=== PATIENT | male | born 1975 | race African-American/Black ===

== ENCOUNTER 2019-12-17 04:34 | Inpatient (IN) ==
[2019-12-17] MEDS ORDERED: ALBUTEROL/IPRATROPIUM 3 ML NEB RESP TX STA (04:53)
[2019-12-17] MEDS ORDERED: AZITHROMYCIN INJ 500 MG in SODIUM CHLORIDE 0.9% 250 ML IV STA (04:53)
[2019-12-17] MEDS ORDERED: ONDANSETRON 4 MG/2 ML VIAL IV STA (04:53)
[2019-12-17] MEDS ORDERED: methylPREDNISolone SOD SUC 125 MG/2 ML VIAL IV STA (04:53)
[2019-12-17] MEDS ORDERED: MORPHINE 4 MG/1 ML VIAL IV STA (04:53)
[2019-12-17] MEDS ORDERED: NITROGLYCERIN 2% OINT 1 INCH/GM PACK TOP STA (04:53)
[2019-12-17] MEDS ORDERED: FUROSEMIDE 100 MG/10 ML VIAL IV STA (04:53)
[2019-12-17] MEDS ORDERED: PIPERACILLIN/TAZOBACTAM 3,375 MG in SODIUM CHLORIDE 0.9% 100 ML IV STA (05:18)
[2019-12-17 05:56] LABS: Basophils % 0.3 % (0.0-0.8); Eosinophils # 0.2 10*3/uL (0.0-0.87); Eosinophils % 1.3 % (0.00-10.9); Hematocrit 47.1 VOL% (42.0-52.0); Hemoglobin 14.9 GM/DL (14.0-18.0); Immature Granulocytes % 0.5 %; Immature Granulocytes Absolute 0.06 #; Lymphocytes # 0.7 10*3/uL (1.4-4.0); Lymphocytes % 6.5 % (21.2-54.2); Mean Corpuscular HGB Conc 31.6 GM/DL (32-36); Mean Corpuscular Volume 103.5 FL (87-102); Mean Platelet Volume 12.6 FL (9.6-12.0); Monocytes % 6.7 % (1.7-12.7); Neutrophils % 84.7 % (38.7-73.9); Platelet Count 147 T/CUMM (130-400); Red Blood Count 4.55 MC/CUMM (3.8-5.5); Red Cell Distribution Width 12.9 % (9.3-17.3); White Blood Count 11.2 T/CUMM (4-12)
[2019-12-17] MEDS ORDERED: hydrALAZINE 20 MG/1 ML VIAL IV STA (06:09)
[2019-12-17 06:12] LABS: PT Patient Result 10.7 SECS (9.6-12.2)
[2019-12-17 06:15] LABS: Apearance,Urine Slightly Hazy (Clear); Bilirubin,Urine Negative (Negative); Blood, Urine Negative (Negative); Glucose,Urine (UA) 150 mg/dL (Negative); Hyaline Casts,Urine 3 /LPF (0-3); Ketones,Urine 5 mg/dL (Negative); Mucus,Urine Occasional /LPF (Occasional); Nitrite,Urine Negative (Negative); Protein,Urine >=500 MG/DL; RBC,Urine 7 /HPF (0-4); Squamous Epithelial Cell,Urine Occasional /HPF (0-10); Urine Color Amber (Yellow); Urine Specific Gravity 1.029 (1.001-1.035); WBC,Urine 67 /HPF (0-6)
[2019-12-17 06:16] LABS: Barbiturates Screen,Urine Negative (Negative); Benzodiazepines Screen,Urine Negative (Negative); Cannabinoid Screen,Urine Positive (Negative); Opiate Screen,Urine Positive (Negative); Phencyclidine Screen,Urine Negative (Negative)
[2019-12-17 06:37] LABS: Albumin 3.7 G/DL (3.4-5.0); Bilirubin,Total 1.6 MG/DL (0.2-1.0); Calcium 8.7 MG/DL (8.5-10.1); Osmolality,Calculated 275.5 MOS/KG (273-304); Total Protein 7.6 G/DL (6.4-8.3)
[2019-12-17] MEDS ORDERED: PNEUMOCOCCAL VACCINE (23 VALENT) 0.5 ML VIAL IM ONE (09:16)
[2019-12-17] MEDS ORDERED: INFLUENZA VIRUS VACCINE 0.5 ML SYRINGE IM ONE (09:16)
[2019-12-17] MEDS ORDERED: ONDANSETRON 4 MG/2 ML VIAL IV PRN (10:23)
[2019-12-17] MEDS ORDERED: DEXTROSE 50% 25 GM/50 ML VIAL IV PRN (10:23)
[2019-12-17] MEDS ORDERED: GLUCAGON 1 MG VIAL IM PRN (10:23)
[2019-12-17] MEDS: cefTRIAXone 1,000 MG in SYRINGE 1 EACH IV SCH (11:48)
[2019-12-17] MEDS: ENOXAPARIN 40 MG/0.4 ML SYRINGE SUBCUT SCH (11:52)
[2019-12-17] MEDS ORDERED: ALBUTEROL/IPRATROPIUM 3 ML NEB RESP TX SCH (13:00)
[2019-12-17] MEDS: ACETAMINOPHEN 325 MG TABLET PO PRN (17:17)
[2019-12-17] MEDS: LEVALBUTEROL 0.63 MG/3 ML NEB RESP TX SCH (19:26)
[2019-12-17] MEDS ORDERED: LABETALOL 20 MG/4 ML SYRINGE IV PRN (20:28)
[2019-12-17] MEDS: LABETALOL 20 MG/4 ML SYRINGE IV PRN (21:12)
[2019-12-18] MEDS: LEVALBUTEROL 0.63 MG/3 ML NEB RESP TX SCH ×4 (00:11→20:22)
[2019-12-18 03:20] LABS: Basophils % 0.1 % (0.0-0.8); Eosinophils % 0.1 % (0.00-10.9); Hematocrit 41.1 VOL% (42.0-52.0); Hemoglobin 13.1 GM/DL (14.0-18.0); Immature Granulocytes % 0.5 %; Immature Granulocytes Absolute 0.08 #; Lymphocytes # 0.7 10*3/uL (1.4-4.0); Lymphocytes % 4.7 % (21.2-54.2); Mean Corpuscular HGB Conc 31.9 GM/DL (32-36); Mean Corpuscular Volume 102.8 FL (87-102); Mean Platelet Volume 13.2 FL (9.6-12.0); Monocytes % 6.5 % (1.7-12.7); Neutrophils % 88.1 % (38.7-73.9); Platelet Count 152 T/CUMM (130-400); Red Cell Distribution Width 12.9 % (9.3-17.3); White Blood Count 15.4 T/CUMM (4-12)
[2019-12-18 03:49] LABS: Calcium 8.7 MG/DL (8.5-10.1); Osmolality,Calculated 279.7 MOS/KG (273-304); Thyroid Stimulating Hormone 0.293 uIU/ml (0.358-3.74)
[2019-12-18 04:49] LABS: Hypochromasia 1+; Lymphocytes 4 % (20-55); Ovalocytes Slight; Platelet Estimate Adequate; Segmented Neutrophils 91 % (50-85); Total Cells Counted 100
[2019-12-18] MEDS: MULTIVITAMIN (CENTRUM) TABLET PO SCH (08:58)
[2019-12-18] MEDS: CHOLECALCIFEROL 1,000 UNIT TABLET PO SCH (08:58)
[2019-12-18] MEDS: CYANOCOBALAMIN 500 MCG TABLET PO SCH (08:58)
[2019-12-18] MEDS: AZITHROMYCIN INJ 500 MG in SODIUM CHLORIDE 0.9% 250 ML IV SCH (08:59)
[2019-12-18] MEDS ORDERED: METOPROLOL TARTRATE 25 MG TABLET PO SCH (11:00)
[2019-12-18] MEDS: cefTRIAXone 1,000 MG in SYRINGE 1 EACH IV SCH (11:45)
[2019-12-18] MEDS: ENOXAPARIN 40 MG/0.4 ML SYRINGE SUBCUT SCH (11:45)
[2019-12-18] MEDS ORDERED: LEVALBUTEROL 0.63 MG/3 ML NEB RESP TX ONE (17:03)
[2019-12-18] MEDS ORDERED: ALBUTEROL/IPRATROPIUM 3 ML NEB RESP TX PRN (17:04)
[2019-12-18] MEDS: LABETALOL 20 MG/4 ML SYRINGE IV PRN (19:43)
[2019-12-19] MEDS: LEVALBUTEROL 0.63 MG/3 ML NEB RESP TX SCH ×4 (00:49→19:54)
[2019-12-19] MEDS: LABETALOL 20 MG/4 ML SYRINGE IV PRN (01:17)
[2019-12-19] MEDS ORDERED: ETOMIDATE 20 MG/10 ML VIAL IV ONE (02:15)
[2019-12-19] MEDS ORDERED: VECURONIUM 10 MG VIAL IV ONE (02:15)
[2019-12-19] MEDS ORDERED: FUROSEMIDE 40 MG/4 ML VIAL ONE (02:44)
[2019-12-19] MEDS ORDERED: FUROSEMIDE 40 MG/4 ML VIAL IV ONE (02:46)
[2019-12-19] MEDS ORDERED: NITROGLYCERIN DRIP 50 MG/250 ML BOTTLE IV ONE (02:50)
[2019-12-19 02:53] LABS: ABG Base Excess -12.8 MMOL/L (-2.5-2.5); ABG Oxygen Saturation 53.7 % (95-100); ABG PO2 45.7 MM HG (80-95); ABG TCO2 19.6 MMOL/L (23-27)
[2019-12-19] MEDS ORDERED: NITROGLYCERIN DRIP 50 MG/250 ML BOTTLE IV PRN (02:55)
[2019-12-19 02:56] LABS: ABG PCO2 76.1 MM HG (35-48); ABG PH 7.045 (7.35-7.45)
[2019-12-19 03:15] LABS: Basophils # 0.1 10*3/uL (0.0-0.2); Basophils % 0.3 % (0.0-0.8); Eosinophils # 0.4 10*3/uL (0.0-0.87); Eosinophils % 2.5 % (0.00-10.9); Immature Granulocytes % 0.6 %; Immature Granulocytes Absolute 0.09 #; Lymphocytes # 3.5 10*3/uL (1.4-4.0); Lymphocytes % 23.8 % (21.2-54.2); Mean Corpuscular Volume 108.7 FL (87-102); Monocytes % 6.5 % (1.7-12.7); Neutrophils % 66.3 % (38.7-73.9); Platelet Count 238 T/CUMM (130-400); Red Cell Distribution Width 13.1 % (9.3-17.3); White Blood Count 14.8 T/CUMM (4-12)
[2019-12-19 03:42] LABS: Calcium 9.2 MG/DL (8.5-10.1); Osmolality,Calculated 291.7 MOS/KG (273-304)
[2019-12-19] MEDS: fentaNYL INJ 1,250 MCG in SODIUM CHLORIDE 0.9% 225 ML IV PRN (04:20)
[2019-12-19] MEDS ORDERED: PHENYLEPHRINE DRIP 40 MG/250 ML PREMIX IV ONE (04:54)
[2019-12-19] MEDS ORDERED: LIDOCAINE 1%/EPI INJ 20 ML VIAL ONE (05:15)
[2019-12-19] MEDS ORDERED: HEPARIN/NACL 0.9% 2 UNITS/ML 1,000 ML IV ONE (05:15)
[2019-12-19] MEDS ORDERED: TIROFIBAN 5,000 MCG/100 ML PREMIX IV ONE (05:57)
[2019-12-19] MEDS ORDERED: ENOXAPARIN 60 MG/0.6 ML SYRINGE ONE (05:57)
[2019-12-19] MEDS ORDERED: TIROFIBAN 5,000 MCG/100 ML PREMIX IV SCH (06:09)
[2019-12-19] MEDS ORDERED: PHENYLEPHRINE DRIP 40 MG/250 ML PREMIX IV PRN ×2 (06:23→15:30)
[2019-12-19] MEDS ORDERED: TICAGRELOR 90 MG TABLET ONE (06:23)
[2019-12-19 08:05] LABS: Basophils % 0.2 % (0.0-0.8); Eosinophils # 0.2 10*3/uL (0.0-0.87); Eosinophils % 1.3 % (0.00-10.9); Hematocrit 42.1 VOL% (42.0-52.0); Hemoglobin 13.3 GM/DL (14.0-18.0); Immature Granulocytes % 0.3 %; Immature Granulocytes Absolute 0.04 #; Lymphocytes # 1.3 10*3/uL (1.4-4.0); Lymphocytes % 10.9 % (21.2-54.2); Mean Corpuscular HGB Conc 31.6 GM/DL (32-36); Mean Corpuscular Volume 104.7 FL (87-102); Monocytes % 7.7 % (1.7-12.7); Neutrophils % 79.6 % (38.7-73.9); Platelet Count 201 T/CUMM (130-400); Red Blood Count 4.02 MC/CUMM (3.8-5.5); Red Cell Distribution Width 13.2 % (9.3-17.3); White Blood Count 11.7 T/CUMM (4-12)
[2019-12-19 08:41] LABS: ABG Base Excess -4.7 MMOL/L (-2.5-2.5); ABG HCO3 20.6 MMOL/L (20-26); ABG Oxygen Saturation 99.2 % (95-100); ABG PCO2 37.4 MM HG (35-48); ABG PH 7.347 (7.35-7.45); ABG TCO2 17.9 MMOL/L (23-27)
[2019-12-19] MEDS ORDERED: METOPROLOL TARTRATE 25 MG TABLET PO SCH (09:00)
[2019-12-19] MEDS ORDERED: TICAGRELOR 90 MG TABLET PO SCH (09:00)
[2019-12-19 09:07] LABS: Calcium 8.7 MG/DL (8.5-10.1); Osmolality,Calculated 282.5 MOS/KG (273-304)
[2019-12-19] MEDS: AZITHROMYCIN INJ 500 MG in SODIUM CHLORIDE 0.9% 250 ML IV SCH (09:29)
[2019-12-19] MEDS: ASPIRIN EC 81 MG TABLET PO SCH (09:30)
[2019-12-19] MEDS: CHOLECALCIFEROL 1,000 UNIT TABLET PO SCH (09:30)
[2019-12-19] MEDS: CYANOCOBALAMIN 500 MCG TABLET PO SCH (09:30)
[2019-12-19] MEDS: PANTOPRAZOLE 40 MG TABLET PO SCH (09:30)
[2019-12-19] MEDS: MULTIVITAMIN (CENTRUM) TABLET PO SCH (09:30)
[2019-12-19 11:34] LABS: CKMB % 7.7 %
[2019-12-19 11:37] LABS: Troponin I 12.8 NG/ML (0.00-0.045)
[2019-12-19] MEDS: cefTRIAXone 1,000 MG in SYRINGE 1 EACH IV SCH (12:08)
[2019-12-19 13:51] LABS: CKMB % 8.8 %
[2019-12-19 13:59] LABS: Troponin I 14.4 NG/ML (0.00-0.045)
[2019-12-19 18:23] LABS: CKMB % 8.5 %
[2019-12-19 18:30] LABS: Troponin I 10.3 NG/ML (0.00-0.045)
[2019-12-19] MEDS: ATORVASTATIN 40 MG TABLET PO SCH (20:43)
[2019-12-19] MEDS: TICAGRELOR 90 MG TABLET PO SCH (20:44)
[2019-12-19] MEDS: ENOXAPARIN 30 MG/0.3 ML SYRINGE SUBCUT SCH (20:44)
[2019-12-20] MEDS: LEVALBUTEROL 0.63 MG/3 ML NEB RESP TX SCH ×4 (00:21→20:26)
[2019-12-20 03:55] LABS: ABG Base Excess -3.2 MMOL/L (-2.5-2.5); ABG HCO3 21.8 MMOL/L (20-26); ABG Oxygen Saturation 99.6 % (95-100); ABG PCO2 35.9 MM HG (35-48); ABG PH 7.382 (7.35-7.45)
[2019-12-20 04:03] LABS: Basophils % 0.4 % (0.0-0.8); Eosinophils # 0.3 10*3/uL (0.0-0.87); Eosinophils % 4.7 % (0.00-10.9); Hematocrit 37.5 VOL% (42.0-52.0); Hemoglobin 11.5 GM/DL (14.0-18.0); Immature Granulocytes % 0.4 %; Immature Granulocytes Absolute 0.03 #; Lymphocytes % 13.6 % (21.2-54.2); Mean Corpuscular HGB Conc 30.7 GM/DL (32-36); Mean Corpuscular Volume 108.1 FL (87-102); Mean Platelet Volume 12.3 FL (9.6-12.0); Monocytes % 8.1 % (1.7-12.7); Neutrophils % 72.8 % (38.7-73.9); Platelet Count 165 T/CUMM (130-400); Red Blood Count 3.47 MC/CUMM (3.8-5.5); Red Cell Distribution Width 13.2 % (9.3-17.3); White Blood Count 7.3 T/CUMM (4-12)
[2019-12-20 04:22] LABS: Calcium 8.7 MG/DL (8.5-10.1); Osmolality,Calculated 283.5 MOS/KG (273-304)
[2019-12-20 04:26] LABS: Risk Ratio 6.87; VLDL CHOLESTEROL 92.2 MG/DL
[2019-12-20] MEDS: CHOLECALCIFEROL 1,000 UNIT TABLET PO SCH (09:20)
[2019-12-20] MEDS: CYANOCOBALAMIN 500 MCG TABLET PO SCH (09:20)
[2019-12-20] MEDS: MULTIVITAMIN (CENTRUM) TABLET PO SCH (09:20)
[2019-12-20] MEDS: PANTOPRAZOLE 40 MG TABLET PO SCH (09:20)
[2019-12-20] MEDS: ASPIRIN EC 81 MG TABLET PO SCH (09:21)
[2019-12-20] MEDS: TICAGRELOR 90 MG TABLET PO SCH ×2 (09:21→20:53)
[2019-12-20] MEDS: INSULIN REGULAR 100 UNIT/ML SUBCUT SCH ×2 (11:34→18:25)
[2019-12-20] MEDS: cefTRIAXone 1,000 MG in SYRINGE 1 EACH IV SCH (11:34)
[2019-12-20] MEDS: AZITHROMYCIN INJ 500 MG in SODIUM CHLORIDE 0.9% 250 ML IV SCH (11:37)
[2019-12-20] MEDS: FUROSEMIDE 40 MG/4 ML VIAL IV SCH (11:40)
[2019-12-20] MEDS: POTASSIUM CHLORIDE 20 MEQ TABLET PO SCH (11:41)
[2019-12-20] MEDS: fentaNYL INJ 1,250 MCG in SODIUM CHLORIDE 0.9% 225 ML IV PRN (16:48)
[2019-12-20] MEDS: ENOXAPARIN 30 MG/0.3 ML SYRINGE SUBCUT SCH (20:53)
[2019-12-20] MEDS: ATORVASTATIN 40 MG TABLET PO SCH (20:53)
[2019-12-20] MEDS: MAGNESIUM OXIDE 400 MG TABLET PO SCH (20:53)
[2019-12-21] MEDS: fentaNYL INJ 1,250 MCG in SODIUM CHLORIDE 0.9% 225 ML IV PRN ×2 (00:01→07:10)
[2019-12-21] MEDS: INSULIN REGULAR 100 UNIT/ML SUBCUT SCH ×4 (00:02→18:07)
[2019-12-21] MEDS: LEVALBUTEROL 0.63 MG/3 ML NEB RESP TX SCH ×4 (00:53→19:24)
[2019-12-21] MEDS ORDERED: NITROGLYCERIN SL 0.4 MG TABLET SL PRN (01:57)
[2019-12-21] MEDS: MORPHINE 4 MG/1 ML VIAL IV PRN (02:08)
[2019-12-21 06:27] LABS: ABG Base Excess -3.4 MMOL/L (-2.5-2.5); ABG HCO3 21.6 MMOL/L (20-26); ABG Oxygen Saturation 99.5 % (95-100); ABG PCO2 38.1 MM HG (35-48); ABG PH 7.361 (7.35-7.45); ABG TCO2 19.2 MMOL/L (23-27)
[2019-12-21 06:36] LABS: Basophils # 0.1 10*3/uL (0.0-0.2); Basophils % 0.5 % (0.0-0.8); Eosinophils # 0.6 10*3/uL (0.0-0.87); Eosinophils % 6.5 % (0.00-10.9); Hematocrit 38.9 VOL% (42.0-52.0); Hemoglobin 11.8 GM/DL (14.0-18.0); Immature Granulocytes % 0.9 %; Immature Granulocytes Absolute 0.09 #; Lymphocytes # 1.3 10*3/uL (1.4-4.0); Lymphocytes % 13.5 % (21.2-54.2); Mean Corpuscular HGB Conc 30.3 GM/DL (32-36); Mean Corpuscular Volume 108.1 FL (87-102); Mean Platelet Volume 12.1 FL (9.6-12.0); Monocytes % 6.3 % (1.7-12.7); Neutrophils % 72.3 % (38.7-73.9); Platelet Count 172 T/CUMM (130-400); Red Cell Distribution Width 13.1 % (9.3-17.3); White Blood Count 9.6 T/CUMM (4-12)
[2019-12-21 06:55] LABS: Calcium 8.8 MG/DL (8.5-10.1); Osmolality,Calculated 284.7 MOS/KG (273-304)
[2019-12-21] MEDS: AZITHROMYCIN INJ 500 MG in SODIUM CHLORIDE 0.9% 250 ML IV SCH (10:01)
[2019-12-21] MEDS: POTASSIUM CHLORIDE 20 MEQ TABLET PO SCH (10:03)
[2019-12-21] MEDS: CYANOCOBALAMIN 500 MCG TABLET PO SCH (10:03)
[2019-12-21] MEDS: TICAGRELOR 90 MG TABLET PO SCH ×2 (10:03→21:14)
[2019-12-21] MEDS: MAGNESIUM OXIDE 400 MG TABLET PO SCH ×2 (10:03→21:13)
[2019-12-21] MEDS: MULTIVITAMIN (CENTRUM) TABLET PO SCH (10:03)
[2019-12-21] MEDS: CHOLECALCIFEROL 1,000 UNIT TABLET PO SCH (10:04)
[2019-12-21] MEDS: FOLIC ACID 1 MG TABLET PO SCH (10:04)
[2019-12-21] MEDS: ASPIRIN EC 81 MG TABLET PO SCH (10:04)
[2019-12-21] MEDS: NICOTINE 21 MG/24 HR PATCH TRANSDERM SCH (10:04)
[2019-12-21] MEDS: THIAMINE 100 MG TABLET PO SCH (10:04)
[2019-12-21] MEDS: FUROSEMIDE 40 MG/4 ML VIAL IV SCH (10:05)
[2019-12-21] MEDS: FAMOTIDINE 20 MG/2 ML VIAL IV SCH (10:05)
[2019-12-21] MEDS ORDERED: METOPROLOL TARTRATE 50 MG TABLET PO SCH (10:17)
[2019-12-21] MEDS: cefTRIAXone 1,000 MG in SYRINGE 1 EACH IV SCH (10:36)
[2019-12-21] MEDS ORDERED: PHENYLEPHRINE DRIP 40 MG/250 ML PREMIX IV PRN (13:35)
[2019-12-21] MEDS: MIDAZOLAM 100 MG in SODIUM CHLORIDE 0.9% 80 ML IV PRN (15:38)
[2019-12-21] MEDS: chlordiazePOXIDE 25 MG CAPSULE PO SCH ×2 (15:39→21:13)
[2019-12-21] MEDS: PANTOPRAZOLE 40 MG TABLET PO SCH (18:10)
[2019-12-21] MEDS: ATORVASTATIN 40 MG TABLET PO SCH (21:14)
[2019-12-21] MEDS: ENOXAPARIN 30 MG/0.3 ML SYRINGE SUBCUT SCH (21:14)
[2019-12-22] MEDS: INSULIN REGULAR 100 UNIT/ML SUBCUT SCH ×3 (00:15→17:36)
[2019-12-22] MEDS: LEVALBUTEROL 0.63 MG/3 ML NEB RESP TX SCH ×3 (01:09→12:07)
[2019-12-22 04:29] LABS: ABG Base Excess -1.7 MMOL/L (-2.5-2.5); ABG Oxygen Saturation 98.6 % (95-100); ABG PCO2 39.1 MM HG (35-48); ABG PH 7.381 (7.35-7.45); ABG TCO2 20.5 MMOL/L (23-27)
[2019-12-22 04:31] LABS: Basophils % 0.4 % (0.0-0.8); Eosinophils # 0.5 10*3/uL (0.0-0.87); Eosinophils % 5.3 % (0.00-10.9); Hematocrit 38.2 VOL% (42.0-52.0); Hemoglobin 11.5 GM/DL (14.0-18.0); Immature Granulocytes % 1.8 %; Immature Granulocytes Absolute 0.16 #; Lymphocytes # 0.6 10*3/uL (1.4-4.0); Lymphocytes % 6.7 % (21.2-54.2); Mean Corpuscular HGB Conc 30.1 GM/DL (32-36); Mean Corpuscular Volume 107.3 FL (87-102); Mean Platelet Volume 11.9 FL (9.6-12.0); Monocytes % 6.9 % (1.7-12.7); Neutrophils % 78.9 % (38.7-73.9); Platelet Count 213 T/CUMM (130-400); Red Blood Count 3.56 MC/CUMM (3.8-5.5); White Blood Count 8.9 T/CUMM (4-12)
[2019-12-22 04:49] LABS: Calcium 8.7 MG/DL (8.5-10.1); Osmolality,Calculated 285.5 MOS/KG (273-304)
[2019-12-22 04:52] LABS: Prealbumin 20.7 MG/DL (20-40)
[2019-12-22] MEDS: NICOTINE 21 MG/24 HR PATCH TRANSDERM SCH (09:14)
[2019-12-22] MEDS: chlordiazePOXIDE 25 MG CAPSULE PO SCH ×3 (09:15→22:29)
[2019-12-22] MEDS: MAGNESIUM OXIDE 400 MG TABLET PO SCH ×2 (09:15→22:29)
[2019-12-22] MEDS: ASPIRIN EC 81 MG TABLET PO SCH (09:15)
[2019-12-22] MEDS: MULTIVITAMIN (CENTRUM) TABLET PO SCH (09:15)
[2019-12-22] MEDS: TICAGRELOR 90 MG TABLET PO SCH ×2 (09:16→22:29)
[2019-12-22] MEDS: FAMOTIDINE 20 MG/2 ML VIAL IV SCH (09:16)
[2019-12-22] MEDS: CYANOCOBALAMIN 500 MCG TABLET PO SCH (09:16)
[2019-12-22] MEDS: FOLIC ACID 1 MG TABLET PO SCH (09:16)
[2019-12-22] MEDS: CHOLECALCIFEROL 1,000 UNIT TABLET PO SCH (09:16)
[2019-12-22] MEDS: POTASSIUM CHLORIDE 20 MEQ TABLET PO SCH (09:16)
[2019-12-22] MEDS: THIAMINE 100 MG TABLET PO SCH (09:16)
[2019-12-22] MEDS: SODIUM CHLORIDE 0.45% 1,000 ML IV SCH ×2 (09:18→22:31)
[2019-12-22] MEDS: AZITHROMYCIN INJ 500 MG in SODIUM CHLORIDE 0.9% 250 ML IV SCH (09:18)
[2019-12-22] MEDS: MIDAZOLAM 100 MG in SODIUM CHLORIDE 0.9% 80 ML IV PRN (10:45)
[2019-12-22] MEDS: cefTRIAXone 1,000 MG in SYRINGE 1 EACH IV SCH (12:30)
[2019-12-22] MEDS: HYDROXYCHLOROQUINE 200 MG TABLET PO SCH (19:19)
[2019-12-22] MEDS: ATORVASTATIN 40 MG TABLET PO SCH (22:29)
[2019-12-22] MEDS: ENOXAPARIN 30 MG/0.3 ML SYRINGE SUBCUT SCH (22:29)
[2019-12-22] MEDS: METOPROLOL TARTRATE 25 MG TABLET PO SCH (22:30)
[2019-12-23] MEDS: MIDAZOLAM 100 MG in SODIUM CHLORIDE 0.9% 80 ML IV PRN (00:25)
[2019-12-23] MEDS: INSULIN REGULAR 100 UNIT/ML SUBCUT SCH ×4 (00:26→18:00)
[2019-12-23 04:40] LABS: Basophils % 0.4 % (0.0-0.8); Eosinophils # 0.5 10*3/uL (0.0-0.87); Eosinophils % 5.6 % (0.00-10.9); Hematocrit 33.9 VOL% (42.0-52.0); Hemoglobin 10.1 GM/DL (14.0-18.0); Immature Granulocytes % 2.2 %; Immature Granulocytes Absolute 0.18 #; Lymphocytes # 0.8 10*3/uL (1.4-4.0); Lymphocytes % 10.1 % (21.2-54.2); Mean Corpuscular HGB Conc 29.8 GM/DL (32-36); Mean Corpuscular Volume 110.1 FL (87-102); Mean Platelet Volume 11.9 FL (9.6-12.0); Monocytes % 9.7 % (1.7-12.7); Platelet Count 227 T/CUMM (130-400); Red Blood Count 3.08 MC/CUMM (3.8-5.5); Red Cell Distribution Width 13.2 % (9.3-17.3); White Blood Count 8.3 T/CUMM (4-12)
[2019-12-23 04:43] LABS: ABG Base Excess -1.8 MMOL/L (-2.5-2.5); ABG HCO3 22.9 MMOL/L (20-26); ABG Oxygen Saturation 99.7 % (95-100); ABG PCO2 39.5 MM HG (35-48); ABG PH 7.376 (7.35-7.45)
[2019-12-23 04:55] LABS: Calcium 8.4 MG/DL (8.5-10.1); Osmolality,Calculated 282.4 MOS/KG (273-304)
[2019-12-23 05:00] LABS: Hypochromasia Slight; Platelet Estimate Adequate
[2019-12-23] MEDS: HYDROXYCHLOROQUINE 200 MG TABLET PO SCH ×2 (06:38→17:45)
[2019-12-23] MEDS: TICAGRELOR 90 MG TABLET PO SCH ×2 (09:23→21:18)
[2019-12-23] MEDS: ASPIRIN EC 81 MG TABLET PO SCH (09:23)
[2019-12-23] MEDS: MULTIVITAMIN (CENTRUM) TABLET PO SCH (09:24)
[2019-12-23] MEDS: METOPROLOL TARTRATE 25 MG TABLET PO SCH ×2 (09:24→21:19)
[2019-12-23] MEDS: POTASSIUM CHLORIDE 20 MEQ TABLET PO SCH (09:24)
[2019-12-23] MEDS: MAGNESIUM OXIDE 400 MG TABLET PO SCH ×2 (09:24→21:19)
[2019-12-23] MEDS: FOLIC ACID 1 MG TABLET PO SCH (09:24)
[2019-12-23] MEDS: THIAMINE 100 MG TABLET PO SCH (09:25)
[2019-12-23] MEDS: CYANOCOBALAMIN 500 MCG TABLET PO SCH (09:25)
[2019-12-23] MEDS: NICOTINE 21 MG/24 HR PATCH TRANSDERM SCH (09:25)
[2019-12-23] MEDS: CHOLECALCIFEROL 1,000 UNIT TABLET PO SCH (09:25)
[2019-12-23] MEDS: FAMOTIDINE 20 MG/2 ML VIAL IV SCH (09:26)
[2019-12-23] MEDS: chlordiazePOXIDE 25 MG CAPSULE PO SCH ×3 (09:29→21:18)
[2019-12-23] MEDS: SODIUM CHLORIDE 0.45% 1,000 ML IV SCH (11:26)
[2019-12-23] MEDS: cefTRIAXone 1,000 MG in SYRINGE 1 EACH IV SCH (12:30)
[2019-12-23] MEDS: LEVALBUTEROL 0.63 MG/3 ML NEB RESP TX SCH (17:58)
[2019-12-23] MEDS: ENOXAPARIN 30 MG/0.3 ML SYRINGE SUBCUT SCH (21:18)
[2019-12-23] MEDS: ATORVASTATIN 40 MG TABLET PO SCH (21:19)
[2019-12-24] MEDS: SODIUM CHLORIDE 0.45% 1,000 ML IV SCH (00:50)
[2019-12-24] MEDS: INSULIN REGULAR 100 UNIT/ML SUBCUT SCH ×4 (04:45→18:38)
[2019-12-24] MEDS: HYDROXYCHLOROQUINE 200 MG TABLET PO SCH (06:50)
[2019-12-24 08:48] LABS: ABG HCO3 21.9 MMOL/L (20-26); ABG Oxygen Saturation 98.1 % (95-100); ABG PCO2 33.8 MM HG (35-48); ABG PH 7.403 (7.35-7.45); ABG PO2 96.4 MM HG (80-95); ABG TCO2 19.2 MMOL/L (23-27)
[2019-12-24 08:54] LABS: Basophils % 0.2 % (0.0-0.8); Eosinophils # 0.6 10*3/uL (0.0-0.87); Eosinophils % 6.3 % (0.00-10.9); Hematocrit 33.3 VOL% (42.0-52.0); Hemoglobin 9.9 GM/DL (14.0-18.0); Immature Granulocytes % 3.1 %; Immature Granulocytes Absolute 0.27 #; Lymphocytes # 0.7 10*3/uL (1.4-4.0); Lymphocytes % 7.4 % (21.2-54.2); Mean Corpuscular HGB Conc 29.7 GM/DL (32-36); Mean Corpuscular Volume 109.2 FL (87-102); Mean Platelet Volume 11.4 FL (9.6-12.0); Platelet Count 242 T/CUMM (130-400); Red Blood Count 3.05 MC/CUMM (3.8-5.5); Red Cell Distribution Width 13.2 % (9.3-17.3); White Blood Count 8.8 T/CUMM (4-12)
[2019-12-24 09:27] LABS: Calcium 8.5 MG/DL (8.5-10.1); Osmolality,Calculated 285.3 MOS/KG (273-304)
[2019-12-24] MEDS: MULTIVITAMIN (CENTRUM) TABLET PO SCH (09:49)
[2019-12-24] MEDS: FOLIC ACID 1 MG TABLET PO SCH (09:49)
[2019-12-24] MEDS: POTASSIUM CHLORIDE 20 MEQ TABLET PO SCH (09:49)
[2019-12-24] MEDS: chlordiazePOXIDE 25 MG CAPSULE PO SCH ×3 (09:50→20:45)
[2019-12-24] MEDS: CYANOCOBALAMIN 500 MCG TABLET PO SCH (09:50)
[2019-12-24] MEDS: THIAMINE 100 MG TABLET PO SCH (09:50)
[2019-12-24] MEDS: METOPROLOL TARTRATE 25 MG TABLET PO SCH ×2 (09:50→20:45)
[2019-12-24] MEDS: MAGNESIUM OXIDE 400 MG TABLET PO SCH ×2 (09:50→20:44)
[2019-12-24] MEDS: CHOLECALCIFEROL 1,000 UNIT TABLET PO SCH (09:50)
[2019-12-24] MEDS: ASPIRIN EC 81 MG TABLET PO SCH (09:50)
[2019-12-24] MEDS: TICAGRELOR 90 MG TABLET PO SCH ×2 (09:51→20:44)
[2019-12-24] MEDS: FAMOTIDINE 20 MG/2 ML VIAL IV SCH (09:51)
[2019-12-24] MEDS: NICOTINE 21 MG/24 HR PATCH TRANSDERM SCH (09:51)
[2019-12-24] MEDS: cefTRIAXone 1,000 MG in SYRINGE 1 EACH IV SCH (11:42)
[2019-12-24] MEDS: MIDAZOLAM 100 MG in SODIUM CHLORIDE 0.9% 80 ML IV PRN (11:44)
[2019-12-24] MEDS: ENOXAPARIN 30 MG/0.3 ML SYRINGE SUBCUT SCH (20:45)
[2019-12-24] MEDS: ATORVASTATIN 40 MG TABLET PO SCH (20:45)
[2019-12-25] MEDS: INSULIN REGULAR 100 UNIT/ML SUBCUT SCH ×4 (00:30→18:59)
[2019-12-25 05:13] LABS: ABG Base Excess -3.6 MMOL/L (-2.5-2.5); ABG HCO3 21.4 MMOL/L (20-26); ABG Oxygen Saturation 97.1 % (95-100); ABG PCO2 31.2 MM HG (35-48); ABG PH 7.415 (7.35-7.45); ABG PO2 87.7 MM HG (80-95); ABG TCO2 17.9 MMOL/L (23-27)
[2019-12-25 05:26] LABS: Basophils % 0.4 % (0.0-0.8); Eosinophils # 0.5 10*3/uL (0.0-0.87); Eosinophils % 5.3 % (0.00-10.9); Hematocrit 34.5 VOL% (42.0-52.0); Hemoglobin 10.5 GM/DL (14.0-18.0); Immature Granulocytes % 2.5 %; Immature Granulocytes Absolute 0.25 #; Lymphocytes # 0.8 10*3/uL (1.4-4.0); Mean Corpuscular HGB Conc 30.4 GM/DL (32-36); Mean Corpuscular Volume 106.5 FL (87-102); Mean Platelet Volume 11.5 FL (9.6-12.0); Monocytes % 9.4 % (1.7-12.7); NRBC # 0.02 10*3/uL; Neutrophils % 74.4 % (38.7-73.9); Platelet Count 299 T/CUMM (130-400); Red Blood Count 3.24 MC/CUMM (3.8-5.5); Red Cell Distribution Width 13.3 % (9.3-17.3)
[2019-12-25 05:37] LABS: Calcium 8.7 MG/DL (8.5-10.1); Osmolality,Calculated 283.4 MOS/KG (273-304)
[2019-12-25 05:48] LABS: Prealbumin 22.8 MG/DL (20-40)
[2019-12-25] MEDS: MIDAZOLAM 100 MG in SODIUM CHLORIDE 0.9% 80 ML IV PRN (08:26)
[2019-12-25] MEDS: FUROSEMIDE 40 MG/4 ML VIAL IV SCH (08:27)
[2019-12-25] MEDS: NICOTINE 21 MG/24 HR PATCH TRANSDERM SCH (08:27)
[2019-12-25] MEDS: ASPIRIN EC 81 MG TABLET PO SCH (08:28)
[2019-12-25] MEDS: CYANOCOBALAMIN 500 MCG TABLET PO SCH (08:28)
[2019-12-25] MEDS: TICAGRELOR 90 MG TABLET PO SCH ×2 (08:29→21:26)
[2019-12-25] MEDS: MAGNESIUM OXIDE 400 MG TABLET PO SCH ×2 (08:29→21:26)
[2019-12-25] MEDS: MULTIVITAMIN (CENTRUM) TABLET PO SCH (08:29)
[2019-12-25] MEDS: POTASSIUM CHLORIDE 20 MEQ TABLET PO SCH (08:29)
[2019-12-25] MEDS: METOPROLOL TARTRATE 25 MG TABLET PO SCH ×2 (08:29→21:26)
[2019-12-25] MEDS: CHOLECALCIFEROL 1,000 UNIT TABLET PO SCH (08:29)
[2019-12-25] MEDS: FOLIC ACID 1 MG TABLET PO SCH (08:29)
[2019-12-25] MEDS: THIAMINE 100 MG TABLET PO SCH (08:30)
[2019-12-25] MEDS: FAMOTIDINE 20 MG/2 ML VIAL IV SCH (08:31)
[2019-12-25] MEDS: chlordiazePOXIDE 25 MG CAPSULE PO SCH ×3 (08:32→21:26)
[2019-12-25] MEDS: ENOXAPARIN 30 MG/0.3 ML SYRINGE SUBCUT SCH (21:26)
[2019-12-25] MEDS: ATORVASTATIN 40 MG TABLET PO SCH (21:26)
[2019-12-26] MEDS: INSULIN REGULAR 100 UNIT/ML SUBCUT SCH ×4 (00:41→19:28)
[2019-12-26 05:36] LABS: ABG Base Excess -4.1 MMOL/L (-2.5-2.5); ABG HCO3 20.4 MMOL/L (20-26); ABG Oxygen Saturation 96.6 % (95-100); ABG PCO2 35.3 MM HG (35-48); ABG PO2 94.1 MM HG (80-95); ABG TCO2 21.5 MMOL/L (23-27)
[2019-12-26 05:38] LABS: Basophils # 0.1 10*3/uL (0.0-0.2); Basophils % 0.4 % (0.0-0.8); Eosinophils # 0.7 10*3/uL (0.0-0.87); Eosinophils % 5.2 % (0.00-10.9); Hemoglobin 10.8 GM/DL (14.0-18.0); Immature Granulocytes % 2.8 %; Immature Granulocytes Absolute 0.39 #; Lymphocytes # 1.3 10*3/uL (1.4-4.0); Lymphocytes % 9.4 % (21.2-54.2); Mean Corpuscular Volume 107.5 FL (87-102); Mean Platelet Volume 11.6 FL (9.6-12.0); Monocytes % 9.1 % (1.7-12.7); NRBC # 0.02 10*3/uL; Neutrophils % 73.1 % (38.7-73.9); Platelet Count 297 T/CUMM (130-400); Red Blood Count 3.35 MC/CUMM (3.8-5.5); Red Cell Distribution Width 13.6 % (9.3-17.3); White Blood Count 13.9 T/CUMM (4-12)
[2019-12-26 05:53] LABS: Calcium 8.9 MG/DL (8.5-10.1); Osmolality,Calculated 287.3 MOS/KG (273-304)
[2019-12-26 06:13] LABS: Eosinophils 4 % (0-10); Lymphocytes 14 % (20-55); Metamyelocytes 1 %; Myelocytes 1 %; Platelet Estimate Normal; Polychromasia Few; Segmented Neutrophils 74 % (50-85); Total Cells Counted 100
[2019-12-26] MEDS: FAMOTIDINE 20 MG/2 ML VIAL IV SCH (09:08)
[2019-12-26] MEDS: NICOTINE 21 MG/24 HR PATCH TRANSDERM SCH (09:09)
[2019-12-26] MEDS: FOLIC ACID 1 MG TABLET PO SCH (09:10)
[2019-12-26] MEDS: CYANOCOBALAMIN 500 MCG TABLET PO SCH (09:10)
[2019-12-26] MEDS: ASPIRIN EC 81 MG TABLET PO SCH (09:10)
[2019-12-26] MEDS: THIAMINE 100 MG TABLET PO SCH (09:10)
[2019-12-26] MEDS: MAGNESIUM OXIDE 400 MG TABLET PO SCH ×2 (09:11→20:57)
[2019-12-26] MEDS: METOPROLOL TARTRATE 25 MG TABLET PO SCH ×2 (09:11→20:57)
[2019-12-26] MEDS: MULTIVITAMIN (CENTRUM) TABLET PO SCH (09:11)
[2019-12-26] MEDS: POTASSIUM CHLORIDE 20 MEQ TABLET PO SCH (09:11)
[2019-12-26] MEDS: CHOLECALCIFEROL 1,000 UNIT TABLET PO SCH (09:11)
[2019-12-26] MEDS: TICAGRELOR 90 MG TABLET PO SCH ×2 (09:11→20:57)
[2019-12-26] MEDS: chlordiazePOXIDE 25 MG CAPSULE PO SCH ×3 (09:16→20:57)
[2019-12-26 09:30] LABS: ABG Base Excess -3.1 MMOL/L (-2.5-2.5); ABG HCO3 21.9 MMOL/L (20-26); ABG Oxygen Saturation 99.4 % (95-100); ABG PCO2 33.8 MM HG (35-48); ABG PH 7.401 (7.35-7.45); ABG TCO2 18.8 MMOL/L (23-27)
[2019-12-26] MEDS: FUROSEMIDE 40 MG/4 ML VIAL IV SCH (19:27)
[2019-12-26] MEDS: ENOXAPARIN 30 MG/0.3 ML SYRINGE SUBCUT SCH (20:56)
[2019-12-26] MEDS: ATORVASTATIN 40 MG TABLET PO SCH (20:57)
[2019-12-26] MEDS: MORPHINE 4 MG/1 ML VIAL IV PRN (21:07)
[2019-12-26] MEDS: ACETAMINOPHEN 325 MG TABLET PO PRN (21:40)
[2019-12-27] MEDS: INSULIN REGULAR 100 UNIT/ML SUBCUT SCH ×4 (00:53→18:24)
[2019-12-27] MEDS: MORPHINE 4 MG/1 ML VIAL IV PRN (00:54)
[2019-12-27] MEDS ORDERED: hydrALAZINE 20 MG/1 ML VIAL IV PRN (02:03)
[2019-12-27] MEDS ORDERED: HALOPERIDOL 5 MG/ML AMP ONE (02:14)
[2019-12-27] MEDS ORDERED: HALOPERIDOL 5 MG/ML AMP IM ONE (02:30)
[2019-12-27 03:55] LABS: ABG Base Excess -2.8 MMOL/L (-2.5-2.5); ABG Oxygen Saturation 94.2 % (95-100); ABG PCO2 32.1 MM HG (35-48); ABG PO2 70.8 MM HG (80-95); ABG TCO2 18.6 MMOL/L (23-27)
[2019-12-27 04:21] LABS: Calcium 8.9 MG/DL (8.5-10.1); Osmolality,Calculated 291.8 MOS/KG (273-304)
[2019-12-27] MEDS: THIAMINE 100 MG TABLET PO SCH (10:10)
[2019-12-27] MEDS: METOPROLOL TARTRATE 25 MG TABLET PO SCH (10:10)
[2019-12-27] MEDS: CHOLECALCIFEROL 1,000 UNIT TABLET PO SCH (10:10)
[2019-12-27] MEDS: TICAGRELOR 90 MG TABLET PO SCH ×2 (10:10→22:16)
[2019-12-27] MEDS: MULTIVITAMIN (CENTRUM) TABLET PO SCH (10:10)
[2019-12-27] MEDS: POTASSIUM CHLORIDE 20 MEQ TABLET PO SCH ×3 (10:10→13:30)
[2019-12-27] MEDS: ASPIRIN EC 81 MG TABLET PO SCH (10:10)
[2019-12-27] MEDS: FOLIC ACID 1 MG TABLET PO SCH (10:10)
[2019-12-27] MEDS: chlordiazePOXIDE 25 MG CAPSULE PO SCH ×3 (10:10→22:16)
[2019-12-27] MEDS: CYANOCOBALAMIN 500 MCG TABLET PO SCH (10:10)
[2019-12-27] MEDS: MAGNESIUM OXIDE 400 MG TABLET PO SCH ×2 (10:10→22:16)
[2019-12-27] MEDS: NICOTINE 21 MG/24 HR PATCH TRANSDERM SCH (10:37)
[2019-12-27] MEDS: FAMOTIDINE 20 MG/2 ML VIAL IV SCH (10:37)
[2019-12-27] MEDS ORDERED: CIPROFLOXACIN 250 MG TABLET PO SCH (11:00)
[2019-12-27] MEDS: FUROSEMIDE 40 MG/4 ML VIAL IV SCH (12:31)
[2019-12-27] MEDS: CIPROFLOXACIN 500 MG TABLET PO SCH ×2 (13:30→22:16)
[2019-12-27] MEDS: ACETAMINOPHEN 325 MG TABLET PO PRN (17:07)
[2019-12-27] MEDS ORDERED: LORazepam 1 MG TABLET PO ONE (18:19)
[2019-12-27] MEDS: METOPROLOL TARTRATE 50 MG TABLET PO SCH (22:15)
[2019-12-27] MEDS: ATORVASTATIN 40 MG TABLET PO SCH (22:15)
[2019-12-27] MEDS: ENOXAPARIN 40 MG/0.4 ML SYRINGE SUBCUT SCH (22:16)
[2019-12-28] MEDS: INSULIN REGULAR 100 UNIT/ML SUBCUT SCH ×4 (00:31→18:06)
[2019-12-28 05:50] LABS: Basophils # 0.1 10*3/uL (0.0-0.2); Eosinophils % 7.5 % (0.00-10.9); Hematocrit 32.1 VOL% (42.0-52.0); Hemoglobin 9.8 GM/DL (14.0-18.0); Immature Granulocytes % 0.9 %; Immature Granulocytes Absolute 0.12 #; Lymphocytes # 1.6 10*3/uL (1.4-4.0); Lymphocytes % 11.5 % (21.2-54.2); Mean Corpuscular HGB Conc 30.5 GM/DL (32-36); Mean Corpuscular Volume 105.2 FL (87-102); Mean Platelet Volume 11.8 FL (9.6-12.0); Monocytes % 7.9 % (1.7-12.7); Neutrophils % 71.2 % (38.7-73.9); Platelet Count 332 T/CUMM (130-400); Red Blood Count 3.05 MC/CUMM (3.8-5.5); Red Cell Distribution Width 13.5 % (9.3-17.3); White Blood Count 13.8 T/CUMM (4-12)
[2019-12-28 06:24] LABS: Calcium 9.5 MG/DL (8.5-10.1); Osmolality,Calculated 291.7 MOS/KG (273-304)
[2019-12-28] MEDS: FAMOTIDINE 20 MG/2 ML VIAL IV SCH (08:40)
[2019-12-28] MEDS: POTASSIUM CHLORIDE 20 MEQ TABLET PO SCH (08:41)
[2019-12-28] MEDS: FUROSEMIDE 40 MG/4 ML VIAL IV SCH (08:41)
[2019-12-28] MEDS: chlordiazePOXIDE 25 MG CAPSULE PO SCH ×3 (08:41→23:40)
[2019-12-28] MEDS: MAGNESIUM OXIDE 400 MG TABLET PO SCH ×2 (08:41→23:19)
[2019-12-28] MEDS: CYANOCOBALAMIN 500 MCG TABLET PO SCH (08:41)
[2019-12-28] MEDS: METOPROLOL TARTRATE 50 MG TABLET PO SCH (08:42)
[2019-12-28] MEDS: MULTIVITAMIN (CENTRUM) TABLET PO SCH (08:42)
[2019-12-28] MEDS: CHOLECALCIFEROL 1,000 UNIT TABLET PO SCH (08:42)
[2019-12-28] MEDS: ASPIRIN EC 81 MG TABLET PO SCH (08:42)
[2019-12-28] MEDS: CIPROFLOXACIN 500 MG TABLET PO SCH ×2 (08:42→23:19)
[2019-12-28] MEDS: THIAMINE 100 MG TABLET PO SCH (08:43)
[2019-12-28] MEDS: TICAGRELOR 90 MG TABLET PO SCH ×2 (08:43→23:19)
[2019-12-28] MEDS: FOLIC ACID 1 MG TABLET PO SCH (08:43)
[2019-12-28] MEDS: NICOTINE 21 MG/24 HR PATCH TRANSDERM SCH (08:43)
[2019-12-28] MEDS: ALBUTEROL 2.5 MG/3 ML NEB RESP TX SCH (20:10)
[2019-12-28] MEDS: METOPROLOL TARTRATE 100 MG TABLET PO SCH (23:18)
[2019-12-28] MEDS: ENOXAPARIN 40 MG/0.4 ML SYRINGE SUBCUT SCH (23:18)
[2019-12-28] MEDS: ATORVASTATIN 40 MG TABLET PO SCH (23:19)
[2019-12-29] MEDS: ACETAMINOPHEN 325 MG TABLET PO PRN (00:22)
[2019-12-29] MEDS: INSULIN REGULAR 100 UNIT/ML SUBCUT SCH ×5 (00:43→23:56)
[2019-12-29] MEDS: ALBUTEROL 2.5 MG/3 ML NEB RESP TX SCH ×4 (02:03→19:32)
[2019-12-29 05:51] LABS: Basophils # 0.1 10*3/uL (0.0-0.2); Basophils % 0.6 % (0.0-0.8); Eosinophils # 0.8 10*3/uL (0.0-0.87); Eosinophils % 6.4 % (0.00-10.9); Hematocrit 31.6 VOL% (42.0-52.0); Hemoglobin 9.5 GM/DL (14.0-18.0); Immature Granulocytes % 0.4 %; Immature Granulocytes Absolute 0.05 #; Lymphocytes # 1.6 10*3/uL (1.4-4.0); Lymphocytes % 12.3 % (21.2-54.2); Mean Corpuscular HGB Conc 30.1 GM/DL (32-36); Mean Platelet Volume 12.1 FL (9.6-12.0); Monocytes % 7.2 % (1.7-12.7); Neutrophils % 73.1 % (38.7-73.9); Platelet Count 347 T/CUMM (130-400); Red Blood Count 3.01 MC/CUMM (3.8-5.5); Red Cell Distribution Width 13.5 % (9.3-17.3); White Blood Count 12.7 T/CUMM (4-12)
[2019-12-29 06:12] LABS: Calcium 9.7 MG/DL (8.5-10.1); Osmolality,Calculated 294.6 MOS/KG (273-304)
[2019-12-29] MEDS: FUROSEMIDE 40 MG/4 ML VIAL IV SCH (10:15)
[2019-12-29] MEDS: CHOLECALCIFEROL 1,000 UNIT TABLET PO SCH (10:16)
[2019-12-29] MEDS: ASPIRIN EC 81 MG TABLET PO SCH (10:16)
[2019-12-29] MEDS: MAGNESIUM OXIDE 400 MG TABLET PO SCH ×2 (10:16→21:04)
[2019-12-29] MEDS: THIAMINE 100 MG TABLET PO SCH (10:16)
[2019-12-29] MEDS: FAMOTIDINE 20 MG/2 ML VIAL IV SCH (10:16)
[2019-12-29] MEDS: CIPROFLOXACIN 500 MG TABLET PO SCH (10:17)
[2019-12-29] MEDS: MULTIVITAMIN (CENTRUM) TABLET PO SCH (10:17)
[2019-12-29] MEDS: CYANOCOBALAMIN 500 MCG TABLET PO SCH (10:17)
[2019-12-29] MEDS: POTASSIUM CHLORIDE 20 MEQ TABLET PO SCH (10:17)
[2019-12-29] MEDS: METOPROLOL TARTRATE 100 MG TABLET PO SCH ×2 (10:18→21:04)
[2019-12-29] MEDS: TICAGRELOR 90 MG TABLET PO SCH ×2 (10:18→21:05)
[2019-12-29] MEDS: NICOTINE 21 MG/24 HR PATCH TRANSDERM SCH (10:18)
[2019-12-29] MEDS: FOLIC ACID 1 MG TABLET PO SCH (10:18)
[2019-12-29] MEDS: LORazepam 2 MG/1 ML VIAL IV PRN ×2 (12:31→14:47)
[2019-12-29] MEDS: LACTULOSE 20 GM/30 ML UDCUP PO SCH ×2 (12:31→21:04)
[2019-12-29] MEDS: DESITIN 4OZ/NYSTATIN 15 GRAM MIXTURE PASTE TOP SCH ×2 (12:31→21:05)
[2019-12-29] MEDS ORDERED: METOPROLOL TARTRATE 5 MG/5 ML VIAL IV ONE ×2 (14:07)
[2019-12-29] MEDS ORDERED: DILTIAZEM 50 MG/10 ML VIAL IV ONE (14:19)
[2019-12-29 14:20] LABS: ABG Base Excess -9.7 MMOL/L (-2.5-2.5); ABG HCO3 16.8 MMOL/L (20-26); ABG Oxygen Saturation 99.8 % (95-100); ABG PCO2 21.1 MM HG (35-48); ABG PH 7.404 (7.35-7.45); ABG TCO2 11.4 MMOL/L (23-27)
[2019-12-29] MEDS ORDERED: DILTIAZEM 25 MG/5 ML VIAL IV ONE (14:21)
[2019-12-29] MEDS ORDERED: SODIUM CHLORIDE 0.9% 500 ML IV ONE ×2 (14:24→18:38)
[2019-12-29 14:46] LABS: Calcium 9.6 MG/DL (8.5-10.1); Osmolality,Calculated 296.8 MOS/KG (273-304); Thyroid Stimulating Hormone 6.16 uIU/ml (0.358-3.74)
[2019-12-29] MEDS ORDERED: chlordiazePOXIDE 25 MG CAPSULE PO SCH (15:00)
[2019-12-29] MEDS: SODIUM CHLORIDE 0.9% 1,000 ML IV SCH ×2 (15:40→20:02)
[2019-12-29] MEDS ORDERED: SODIUM CHLORIDE 0.9% 1,000 ML IV ONE ×2 (15:41→18:38)
[2019-12-29] MEDS ORDERED: ACETAMINOPHEN 650 MG SUPP RECTAL ONE (15:42)
[2019-12-29] MEDS ORDERED: LORazepam 2 MG/1 ML VIAL IV PRN (15:59)
[2019-12-29] MEDS ORDERED: NOREPINEPHRINE 8 MG in SODIUM CHLORIDE 0.9% 242 ML IV PRN (16:05)
[2019-12-29] MEDS ORDERED: NOREPINEPHRINE 4 MG/4 ML VIAL IV ONE ×2 (16:06→16:08)
[2019-12-29] MEDS: ENOXAPARIN 100 MG/ML SYRINGE SUBCUT SCH (17:40)
[2019-12-29] MEDS: VANCOMYCIN INJ 1,500 MG in SODIUM CHLORIDE 0.9% 500 ML IV SCH (17:40)
[2019-12-29] MEDS: PIPERACILLIN/TAZOBACTAM 3,375 MG in SODIUM CHLORIDE 0.9% 100 ML IV SCH (17:40)
[2019-12-29 18:48] LABS: Amorphous Crystals,Urine Occasional /HPF (Few); Apearance,Urine CLOUDY (Clear); Bacteria,Urine Occasional /HPF (Few); Bilirubin,Urine Negative (Negative); Blood, Urine Moderate mg/dL (Negative); Glucose,Urine (UA) Negative (Negative); Ketones,Urine Negative (Negative); Mucus,Urine Occasional /LPF (Occasional); Nitrite,Urine Negative (Negative); Protein,Urine Negative; RBC,Urine 6 /HPF (0-4); Squamous Epithelial Cell,Urine Occasional /HPF (0-10); Urine Color Yellow (Yellow); Urine Specific Gravity 1.009 (1.001-1.035); Urine Urobilinogen < 2.0 EU/DL (0.2-1.0); WBC,Urine 23 /HPF (0-6)
[2019-12-29] MEDS: ATORVASTATIN 40 MG TABLET PO SCH (21:09)
[2019-12-30] MEDS: PIPERACILLIN/TAZOBACTAM 3,375 MG in SODIUM CHLORIDE 0.9% 100 ML IV SCH ×2 (00:11→08:05)
[2019-12-30] MEDS: ALBUTEROL 2.5 MG/3 ML NEB RESP TX SCH ×2 (00:15→08:22)
[2019-12-30] MEDS: SODIUM CHLORIDE 0.9% 1,000 ML IV SCH (03:25)
[2019-12-30 04:36] LABS: Basophils # 0.2 10*3/uL (0.0-0.2); Basophils % 0.6 % (0.0-0.8); Eosinophils # 0.7 10*3/uL (0.0-0.87); Eosinophils % 2.8 % (0.00-10.9); Hematocrit 32.2 VOL% (42.0-52.0); Hemoglobin 9.4 GM/DL (14.0-18.0); Immature Granulocytes % 0.8 %; Immature Granulocytes Absolute 0.19 #; Lymphocytes # 2.1 10*3/uL (1.4-4.0); Lymphocytes % 8.3 % (21.2-54.2); Mean Corpuscular HGB Conc 29.2 GM/DL (32-36); Mean Corpuscular Volume 109.9 FL (87-102); Mean Platelet Volume 12.2 FL (9.6-12.0); NRBC # 0.04 10*3/uL; Neutrophils % 82.5 % (38.7-73.9); Platelet Count 404 T/CUMM (130-400); Red Blood Count 2.93 MC/CUMM (3.8-5.5); Red Cell Distribution Width 14.2 % (9.3-17.3); White Blood Count 24.8 T/CUMM (4-12)
[2019-12-30 04:51] LABS: Calcium 8.5 MG/DL (8.5-10.1); Osmolality,Calculated 303.3 MOS/KG (273-304)
[2019-12-30 05:01] LABS: Hypochromasia Slight; Platelet Estimate Increased
[2019-12-30 05:03] LABS: Microcytosis 1+
[2019-12-30] MEDS: ENOXAPARIN 100 MG/ML SYRINGE SUBCUT SCH (05:50)
[2019-12-30] MEDS: INSULIN REGULAR 100 UNIT/ML SUBCUT SCH ×4 (05:51→23:07)
[2019-12-30] MEDS: FAMOTIDINE 20 MG/2 ML VIAL IV SCH ×2 (08:05→12:16)
[2019-12-30] MEDS: NICOTINE 21 MG/24 HR PATCH TRANSDERM SCH (08:05)
[2019-12-30] MEDS: LACTULOSE 20 GM/30 ML UDCUP PO SCH ×2 (08:05→22:01)
[2019-12-30] MEDS: MULTIVITAMIN (CENTRUM) TABLET PO SCH (08:06)
[2019-12-30] MEDS: TICAGRELOR 90 MG TABLET PO SCH ×2 (08:06→22:04)
[2019-12-30] MEDS: MAGNESIUM OXIDE 400 MG TABLET PO SCH ×2 (08:06→22:04)
[2019-12-30] MEDS: DESITIN 4OZ/NYSTATIN 15 GRAM MIXTURE PASTE TOP SCH ×2 (08:06→22:04)
[2019-12-30] MEDS: CHOLECALCIFEROL 1,000 UNIT TABLET PO SCH (08:06)
[2019-12-30] MEDS: ASPIRIN EC 81 MG TABLET PO SCH (08:06)
[2019-12-30] MEDS: METOPROLOL TARTRATE 100 MG TABLET PO SCH ×2 (08:06→22:01)
[2019-12-30] MEDS: CYANOCOBALAMIN 500 MCG TABLET PO SCH (08:06)
[2019-12-30] MEDS: THIAMINE 100 MG TABLET PO SCH (08:06)
[2019-12-30] MEDS: FOLIC ACID 1 MG TABLET PO SCH (08:06)
[2019-12-30] MEDS: POTASSIUM CHLORIDE 20 MEQ TABLET PO SCH (08:06)
[2019-12-30] MEDS: VANCOMYCIN INJ 1,500 MG in SODIUM CHLORIDE 0.9% 500 ML IV SCH (11:42)
[2019-12-30] MEDS: SODIUM CHLORIDE 0.45% 1,000 ML IV SCH (11:47)
[2019-12-30] MEDS: CEFEPIME 1,000 MG in SODIUM CHLORIDE 0.9% 100 ML IV SCH ×2 (13:48→22:00)
[2019-12-30] MEDS: ENOXAPARIN 30 MG/0.3 ML SYRINGE SUBCUT SCH (13:56)
[2019-12-30] MEDS: ATORVASTATIN 40 MG TABLET PO SCH (22:01)
[2019-12-30] MEDS: ACETAMINOPHEN 325 MG TABLET PO PRN (22:50)
[2019-12-31] MEDS: SODIUM CHLORIDE 0.45% 1,000 ML IV SCH (01:29)
[2019-12-31] MEDS: CEFEPIME 1,000 MG in SODIUM CHLORIDE 0.9% 100 ML IV SCH ×3 (05:12→20:26)
[2019-12-31 06:10] LABS: Basophils # 0.1 10*3/uL (0.0-0.2); Basophils % 0.7 % (0.0-0.8); Eosinophils # 1.2 10*3/uL (0.0-0.87); Eosinophils % 10.8 % (0.00-10.9); Hematocrit 28.9 VOL% (42.0-52.0); Hemoglobin 8.4 GM/DL (14.0-18.0); Immature Granulocytes % 0.5 %; Immature Granulocytes Absolute 0.06 #; Lymphocytes # 1.3 10*3/uL (1.4-4.0); Lymphocytes % 12.1 % (21.2-54.2); Mean Corpuscular HGB Conc 29.1 GM/DL (32-36); Mean Corpuscular Volume 111.6 FL (87-102); Mean Platelet Volume 12.1 FL (9.6-12.0); Monocytes % 5.4 % (1.7-12.7); NRBC # 0.02 10*3/uL; Neutrophils % 70.5 % (38.7-73.9); Platelet Count 285 T/CUMM (130-400); Red Blood Count 2.59 MC/CUMM (3.8-5.5); Red Cell Distribution Width 13.8 % (9.3-17.3)
[2019-12-31 06:34] LABS: Albumin 2.6 G/DL (3.4-5.0); Bilirubin,Total 1.6 MG/DL (0.2-1.0); Calcium 9.3 MG/DL (8.5-10.1); Osmolality,Calculated 299.4 MOS/KG (273-304); Total Protein 7.2 G/DL (6.4-8.3)
[2019-12-31 06:42] LABS: Hypochromasia Slight; Macrocytosis Slight
[2019-12-31 06:43] LABS: Platelet Estimate Normal
[2019-12-31] MEDS: INSULIN REGULAR 100 UNIT/ML SUBCUT SCH ×3 (06:49→21:05)
[2019-12-31] MEDS: MAGNESIUM OXIDE 400 MG TABLET PO SCH ×2 (08:49→20:23)
[2019-12-31] MEDS: TICAGRELOR 90 MG TABLET PO SCH ×2 (08:49→20:22)
[2019-12-31] MEDS: CYANOCOBALAMIN 500 MCG TABLET PO SCH (08:49)
[2019-12-31] MEDS: CHOLECALCIFEROL 1,000 UNIT TABLET PO SCH (08:49)
[2019-12-31] MEDS: POTASSIUM CHLORIDE 20 MEQ TABLET PO SCH (08:50)
[2019-12-31] MEDS: FOLIC ACID 1 MG TABLET PO SCH (08:50)
[2019-12-31] MEDS: METOPROLOL TARTRATE 100 MG TABLET PO SCH ×2 (08:50→20:23)
[2019-12-31] MEDS: FAMOTIDINE 20 MG/2 ML VIAL IV SCH (08:50)
[2019-12-31] MEDS: LACTULOSE 20 GM/30 ML UDCUP PO SCH ×2 (08:50→20:23)
[2019-12-31] MEDS: MULTIVITAMIN (CENTRUM) TABLET PO SCH (08:50)
[2019-12-31] MEDS: THIAMINE 100 MG TABLET PO SCH (08:50)
[2019-12-31] MEDS: NICOTINE 21 MG/24 HR PATCH TRANSDERM SCH (08:51)
[2019-12-31] MEDS: DESITIN 4OZ/NYSTATIN 15 GRAM MIXTURE PASTE TOP SCH ×2 (08:51→20:23)
[2019-12-31] MEDS: ASPIRIN EC 81 MG TABLET PO SCH (08:52)
[2019-12-31] MEDS: VANCOMYCIN INJ 1,500 MG in SODIUM CHLORIDE 0.9% 500 ML IV SCH (11:58)
[2019-12-31] MEDS: ACETAMINOPHEN 325 MG TABLET PO PRN (11:58)
[2019-12-31] MEDS: ENOXAPARIN 30 MG/0.3 ML SYRINGE SUBCUT SCH (11:58)
[2019-12-31] MEDS: ATORVASTATIN 40 MG TABLET PO SCH (20:23)
[2019-12-31] MEDS: DEXTROSE 5% 1,000 ML IV SCH (21:04)
[2020-01-01] MEDS: INSULIN REGULAR 100 UNIT/ML SUBCUT SCH ×5 (01:05→22:49)
[2020-01-01] MEDS: CEFEPIME 1,000 MG in SODIUM CHLORIDE 0.9% 100 ML IV SCH ×3 (05:14→22:50)
[2020-01-01 05:29] LABS: Basophils # 0.1 10*3/uL (0.0-0.2); Basophils % 0.6 % (0.0-0.8); Eosinophils % 10.5 % (0.00-10.9); Hematocrit 28.1 VOL% (42.0-52.0); Hemoglobin 8.2 GM/DL (14.0-18.0); Immature Granulocytes % 0.4 %; Immature Granulocytes Absolute 0.04 #; Lymphocytes # 1.4 10*3/uL (1.4-4.0); Lymphocytes % 14.3 % (21.2-54.2); Mean Corpuscular HGB Conc 29.2 GM/DL (32-36); Mean Corpuscular Volume 109.8 FL (87-102); Mean Platelet Volume 12.3 FL (9.6-12.0); Monocytes % 6.8 % (1.7-12.7); NRBC # 0.02 10*3/uL; Neutrophils % 67.4 % (38.7-73.9); Platelet Count 282 T/CUMM (130-400); Red Blood Count 2.56 MC/CUMM (3.8-5.5); Red Cell Distribution Width 13.4 % (9.3-17.3); White Blood Count 9.6 T/CUMM (4-12)
[2020-01-01 05:44] LABS: Calcium 9.2 MG/DL (8.5-10.1); Osmolality,Calculated 295.4 MOS/KG (273-304)
[2020-01-01 06:17] LABS: Folate 10.3 NG/ML (5.4-24.0)
[2020-01-01] MEDS ORDERED: amLODIPine 5 MG TABLET PO SCH (10:00)
[2020-01-01] MEDS: CYANOCOBALAMIN 500 MCG TABLET PO SCH (10:01)
[2020-01-01] MEDS: POTASSIUM CHLORIDE 20 MEQ TABLET PO SCH (10:01)
[2020-01-01] MEDS: MULTIVITAMIN (CENTRUM) TABLET PO SCH (10:01)
[2020-01-01] MEDS: FOLIC ACID 1 MG TABLET PO SCH (10:01)
[2020-01-01] MEDS: ASPIRIN EC 81 MG TABLET PO SCH (10:01)
[2020-01-01] MEDS: METOPROLOL TARTRATE 100 MG TABLET PO SCH ×2 (10:02→21:50)
[2020-01-01] MEDS: MAGNESIUM OXIDE 400 MG TABLET PO SCH ×2 (10:02→21:50)
[2020-01-01] MEDS: TICAGRELOR 90 MG TABLET PO SCH ×2 (10:02→21:50)
[2020-01-01] MEDS: THIAMINE 100 MG TABLET PO SCH (10:02)
[2020-01-01] MEDS: CHOLECALCIFEROL 1,000 UNIT TABLET PO SCH (10:02)
[2020-01-01] MEDS: FAMOTIDINE 20 MG/2 ML VIAL IV SCH (10:03)
[2020-01-01] MEDS: NICOTINE 21 MG/24 HR PATCH TRANSDERM SCH (10:05)
[2020-01-01] MEDS: LACTULOSE 20 GM/30 ML UDCUP PO SCH ×2 (10:05→22:49)
[2020-01-01] MEDS: DESITIN 4OZ/NYSTATIN 15 GRAM MIXTURE PASTE TOP SCH ×2 (10:17→21:51)
[2020-01-01] MEDS: VANCOMYCIN INJ 1,500 MG in SODIUM CHLORIDE 0.9% 500 ML IV SCH (12:10)
[2020-01-01] MEDS: DEXTROSE 5% 1,000 ML IV SCH ×2 (12:44→18:48)
[2020-01-01] MEDS: ATORVASTATIN 40 MG TABLET PO SCH (21:50)
[2020-01-02] MEDS: ACETAMINOPHEN 325 MG TABLET PO PRN (01:26)
[2020-01-02] MEDS: CEFEPIME 1,000 MG in SODIUM CHLORIDE 0.9% 100 ML IV SCH ×2 (05:15→09:53)
[2020-01-02] MEDS: INSULIN REGULAR 100 UNIT/ML SUBCUT SCH ×2 (07:36→12:12)
[2020-01-02] MEDS ORDERED: ASCORBIC ACID 500 MG TABLET PO SCH (09:00)
[2020-01-02] MEDS ORDERED: amLODIPine 10 MG TABLET PO SCH (09:00)
[2020-01-02] MEDS: ASPIRIN EC 81 MG TABLET PO SCH (09:51)
[2020-01-02] MEDS: DEXTROSE 5% 1,000 ML IV SCH (09:51)
[2020-01-02] MEDS: METOPROLOL TARTRATE 100 MG TABLET PO SCH (09:52)
[2020-01-02] MEDS: MAGNESIUM OXIDE 400 MG TABLET PO SCH (09:52)
[2020-01-02] MEDS: CYANOCOBALAMIN 500 MCG TABLET PO SCH (09:52)
[2020-01-02] MEDS: TICAGRELOR 90 MG TABLET PO SCH (09:52)
[2020-01-02] MEDS: CHOLECALCIFEROL 1,000 UNIT TABLET PO SCH (09:52)
[2020-01-02] MEDS: MULTIVITAMIN (CENTRUM) TABLET PO SCH (09:52)
[2020-01-02] MEDS: FOLIC ACID 1 MG TABLET PO SCH (09:52)
[2020-01-02] MEDS: POTASSIUM CHLORIDE 20 MEQ TABLET PO SCH (09:53)
[2020-01-02] MEDS: LACTULOSE 20 GM/30 ML UDCUP PO SCH (09:53)
[2020-01-02] MEDS: NICOTINE 21 MG/24 HR PATCH TRANSDERM SCH (09:54)
[2020-01-02] MEDS: DESITIN 4OZ/NYSTATIN 15 GRAM MIXTURE PASTE TOP SCH (09:54)
[2020-01-02] MEDS: THIAMINE 100 MG TABLET PO SCH (09:55)
[2020-01-02] MEDS: FAMOTIDINE 20 MG/2 ML VIAL IV SCH (09:55)
[2020-01-02 11:26] VITALS: BP 158/85
[2020-01-02] MEDS: VANCOMYCIN INJ 1,500 MG in SODIUM CHLORIDE 0.9% 500 ML IV SCH (12:04)
== END 2020-01-02 15:00 | disposition home or self-care (01) | DRG 981 ==
LOC: EDUNIT# → EDBD → N.ED 04:34 → N.EDINP 07:15 → SUATTDRO 07:15 → N.TELES 07:56 → N.TELEN 08:38 → N.CC 12-19 02:42 → N.TELES 12-27 15:25 → N.CC 12-29 15:06 → N.2E 12-31 15:24
PROVIDERS: ADMIT Internal Medicine; ATTEND Family Medicine

== ENCOUNTER 2021-09-01 10:06 | Inpatient (IN) ==
[~2021-09-01 10:06] MED LIST: GLUCAGON 1 MG VIAL IM PRN
[2021-09-01] MEDS ORDERED: DEXTROSE 50% 25 GM/50 ML SYRINGE IV PRN (12:29)
[2021-09-01] MEDS ORDERED: traZODone 50 MG TABLET PO PRN (13:13)
[2021-09-01 13:15] LABS: ABG Base Excess 0.1 MMOL/L (-2.5-2.5); ABG HCO3 24.5 MMOL/L (20-26); ABG Oxygen Saturation 97.2 % (95-100); ABG PH 7.408 (7.35-7.45); ABG PO2 85.1 MM HG (80-95); ABG TCO2 21.9 MMOL/L (23-27); Allen Test Positive; Pt O2 Delivery Device Room Air
[2021-09-01 13:26] LABS: Basophils % 0.5 % (0.0-0.8); Eosinophils # 0.2 10*3/uL (0.0-0.87); Eosinophils % 2.6 % (0.00-10.9); Hematocrit 37.2 VOL% (42.0-52.0); Hemoglobin 11.7 GM/DL (14.0-18.0); Immature Granulocytes % 0.3 %; Immature Granulocytes Absolute 0.02 #; Lymphocytes # 1.5 10*3/uL (1.4-4.0); Mean Corpuscular HGB Conc 31.5 GM/DL (32-36); Mean Corpuscular Volume 101.4 FL (87-102); Mean Platelet Volume 11.1 FL (9.6-12.0); Monocytes % 9.2 % (1.7-12.7); Neutrophils % 61.4 % (38.7-73.9); Platelet Count 215 T/CUMM (130-400); Red Blood Count 3.67 MC/CUMM (3.8-5.5); Red Cell Distribution Width 12.8 % (9.3-17.3); White Blood Count 5.7 T/CUMM (4-12)
[2021-09-01 13:50] LABS: Albumin 3.9 G/DL (3.4-5.0); Osmolality,Calculated 274.5 MOS/KG (273-304); Potassium 3.8 MMOL/L (3.5-5.1); Total Protein 7.4 G/DL (6.4-8.2)
[2021-09-01] MEDS: CLORAZEPATE 3.75 MG TABLET PO PRN ×2 (13:53→21:36)
[2021-09-01] MEDS: CHLORHEXIDINE 4% SOLN 118 ML BOTTLE TOP SCH ×2 (15:15→21:36)
[2021-09-01] MEDS: SODIUM CHLORIDE 0.9% 1,000 ML IV SCH (15:15)
[2021-09-01] MEDS: GABAPENTIN 300 MG CAPSULE PO SCH (21:36)
[2021-09-01] MEDS: CHLORHEXIDINE 0.12% ORAL RINSE 60 ML BOTTLE SWISH/SPIT SCH (21:36)
[2021-09-02] MEDS ORDERED: PAPAVERINE 60 MG/2 ML VIAL ONE (04:12)
[2021-09-02] MEDS ORDERED: VANCOMYCIN 1,000 MG VIAL ONE (04:13)
[2021-09-02] MEDS ORDERED: CEFUROXIME INJ 1,500 MG in SODIUM CHLORIDE 0.9% 100 ML IV ONE (05:00)
[2021-09-02] MEDS ORDERED: PHENYLEPHRINE 10 MG/1 ML VIAL IV ONE (05:14)
[2021-09-02] MEDS ORDERED: LACTATED RINGERS 1,000 ML IV ONE (05:14)
[2021-09-02] MEDS ORDERED: MINERAL OIL/PETROLATUM OPH OINT 3.5 GM TUBE ONE (05:14)
[2021-09-02] MEDS ORDERED: AMINOCAPROIC ACID 5,000 MG/20 ML VIAL ONE (05:14)
[2021-09-02] MEDS ORDERED: VECURONIUM 10 MG VIAL IV ONE (05:14)
[2021-09-02] MEDS ORDERED: MIDAZOLAM 10 MG/2 ML VIAL ONE ×5 (05:14→10:01)
[2021-09-02] MEDS ORDERED: CALCIUM CHLORIDE 1,000 MG/10 ML VIAL IV ONE (05:14)
[2021-09-02] MEDS ORDERED: SEVOFLURANE 1 UNIT/15 MINUTE INH ONE (05:14)
[2021-09-02] MEDS ORDERED: ePHEDrine 50 MG/ML VIAL ONE (05:14)
[2021-09-02] MEDS ORDERED: ETOMIDATE 40 MG/20 ML VIAL IV ONE (05:14)
[2021-09-02] MEDS ORDERED: SODIUM CHLORIDE 0.9% 1,000 ML IV ONE (05:14)
[2021-09-02] MEDS ORDERED: LIDOCAINE 2% 5 ML VIAL ONE ×3 (05:14→11:53)
[2021-09-02] MEDS ORDERED: SODIUM CHLORIDE 0.9% 500 ML IV ONE (05:14)
[2021-09-02] MEDS ORDERED: NITROGLYCERIN DRIP 50 MG/250 ML BOTTLE IV ONE (05:14)
[2021-09-02] MEDS ORDERED: DIAZEPAM 5 MG TABLET PO ONE (05:30)
[2021-09-02] MEDS: CHLORHEXIDINE 4% SOLN 118 ML BOTTLE TOP SCH ×2 (05:30→10:11)
[2021-09-02] MEDS ORDERED: SUFentanil 250 MCG/5 ML AMP ONE ×3 (05:30)
[2021-09-02] MEDS ORDERED: FAMOTIDINE 20 MG TABLET PO ONE (05:30)
[2021-09-02] MEDS: CHLORHEXIDINE 0.12% ORAL RINSE 60 ML BOTTLE SWISH/SPIT SCH ×2 (05:50→10:11)
[2021-09-02 07:46] LABS: ABG Base Excess -0.6 MMOL/L (-2.5-2.5); ABG HCO3 23.9 MMOL/L (20-26); ABG Oxygen Saturation 99.6 % (95-100); ABG PCO2 47.4 MM HG (35-48); ABG PH 7.339 (7.35-7.45); ABG TCO2 23.2 MMOL/L (23-27); Glucose Heart Surgery 118 MG/DL (74-106); Hematocrit Heart Surgery 32.5 PERCENT (42-52); Hemoglobin Heart Surgery 10.5 G/DL (14.0-18.0); Ionized Calcium Arterial 1.17 MMOL/L (1.21-1.46); PCO2 Patient Temp Arterial 47.4 MMHG; PH Patient Temp Arterial 7.339; Patient Temperature 37 CELCIUS; Potassium Heart/CVR 3.9 MMOL/L (3.5-5.1); Sodium Heart/CVR 140 MMOL/L (135-145)
[2021-09-02 07:54] LABS: Bilirubin,Urine Negative (Negative); Blood, Urine Negative (Negative); Glucose,Urine (UA) Negative (Negative); Ketones,Urine Negative (Negative); Nitrite,Urine Negative (Negative); Protein,Urine 30 MG/DL; RBC,Urine <1 /HPF (0-4); Squamous Epithelial Cell,Urine Occasional /HPF (0-10); Urine Appearance CLEAR (Clear); Urine Color Yellow (Yellow); Urine Specific Gravity 1.015 (1.001-1.035); Urine Urobilinogen < 2.0 EU/DL (0.2-1.0)
[2021-09-02 09:16] LABS: Hematocrit Heart Surgery 24.6 PERCENT (42-52); Hemoglobin Heart Surgery 7.9 G/DL (14.0-18.0); PH Patient Temp Venous 7.426; PO2 Patient Temp Venous 32.4 MM HG; Potassium Heart/CVR 4.3 MMOL/L (3.5-5.1); VBG Base Excess 0.3 MEQ/L (0-4); VBG HCO3 24.4 MEQ/L (24-28); VBG Oxygen Saturation 72.7 %; VBG PCO2 42.8 MMHG (41-51); VBG PH 7.383; VBG PO2 39.9 MMHG (17-40); VBG Total CO2 23.9 MMOL/L
[2021-09-02 09:49] LABS: Hemoglobin Heart Surgery 8.4 G/DL (14.0-18.0); PCO2 Patient Temp Venous 35.6 MM HG; PH Patient Temp Venous 7.43; PO2 Patient Temp Venous 34.6 MM HG; Potassium Heart/CVR 4.3 MMOL/L (3.5-5.1); VBG Base Excess -0.3 MEQ/L (0-4); VBG HCO3 23.9 MEQ/L (24-28); VBG Oxygen Saturation 76.4 %; VBG PCO2 41.2 MMHG (41-51); VBG PH 7.386; VBG PO2 42.6 MMHG (17-40); VBG Total CO2 23.1 MMOL/L
[2021-09-02] MEDS ORDERED: FAMOTIDINE 20 MG/2 ML VIAL IV ONE (10:02)
[2021-09-02] MEDS: SODIUM CHLORIDE 0.9% 1,000 ML IV SCH (10:11)
[2021-09-02] MEDS: GABAPENTIN 300 MG CAPSULE PO SCH (10:11)
[2021-09-02 10:18] LABS: Hematocrit Heart Surgery 26.6 PERCENT (42-52); Hemoglobin Heart Surgery 8.6 G/DL (14.0-18.0); PCO2 Patient Temp Venous 40.2 MM HG; PH Patient Temp Venous 7.386; PO2 Patient Temp Venous 35.8 MM HG; Potassium Heart/CVR 4.8 MMOL/L (3.5-5.1); VBG Base Excess -0.8 MEQ/L (0-4); VBG HCO3 23.3 MEQ/L (24-28); VBG Oxygen Saturation 66.1 %; VBG PCO2 40.2 MMHG (41-51); VBG PH 7.386; VBG PO2 35.8 MMHG (17-40); VBG Total CO2 22.5 MMOL/L
[2021-09-02] MEDS ORDERED: PHENYLEPHRINE DRIP 40 MG/250 ML PREMIX IV ONE (10:28)
[2021-09-02 10:51] LABS: ABG Base Excess -3.2 MMOL/L (-2.5-2.5); ABG HCO3 21.8 MMOL/L (20-26); ABG Oxygen Saturation 99.8 % (95-100); ABG PH 7.329 (7.35-7.45); ABG TCO2 20.9 MMOL/L (23-27); Glucose Heart Surgery 163 MG/DL (74-106); Hematocrit Heart Surgery 28.2 PERCENT (42-52); Hemoglobin Heart Surgery 9.1 G/DL (14.0-18.0); Ionized Calcium Arterial 1.29 MMOL/L (1.21-1.46); PH Patient Temp Arterial 7.329; Patient Temperature 37 CELCIUS; Potassium Heart/CVR 4.1 MMOL/L (3.5-5.1); Sodium Heart/CVR 135 MMOL/L (135-145)
[2021-09-02] MEDS ORDERED: PROTAMINE SULFATE 250 MG/25 ML VIAL IV ONE (10:59)
[2021-09-02] MEDS ORDERED: MAGNESIUM SULFATE 5 GM/10 ML VIAL IV ONE (10:59)
[2021-09-02] MEDS ORDERED: ALBUMIN 25% 25 GM/100 ML VIAL IV ONE (10:59)
[2021-09-02] MEDS ORDERED: methylPREDNISolone SOD SUC 1,000 MG/8 ML VIAL ONE (10:59)
[2021-09-02] MEDS ORDERED: MANNITOL 100 GM/500 ML BAG IV ONE (10:59)
[2021-09-02] MEDS ORDERED: PROTAMINE SULFATE 50 MG/5 ML VIAL IV ONE ×2 (11:00→11:53)
[2021-09-02] MEDS ORDERED: HEPARIN 10,000 UNIT/10 ML VIAL ONE (11:00)
[2021-09-02] MEDS ORDERED: SODIUM BICARBONATE 50 MEQ/50 ML VIAL IV ONE (11:00)
[2021-09-02] MEDS ORDERED: FUROSEMIDE 20 MG/2 ML VIAL ONE (11:00)
[2021-09-02] MEDS ORDERED: POTASSIUM CHLORIDE RIDER 10 MEQ/100 ML PREMIX IV PRN (11:11)
[2021-09-02] MEDS ORDERED: NITROPRUSSIDE 100 MG in DEXTROSE 5% 250 ML IV PRN (11:11)
[2021-09-02] MEDS ORDERED: CHLORHEXIDINE 4% SOLN 118 ML BOTTLE TOP PRN (11:11)
[2021-09-02] MEDS ORDERED: MIDAZOLAM 10 MG/2 ML VIAL IV PRN (11:11)
[2021-09-02] MEDS ORDERED: CALCIUM CHLORIDE 1,000 MG/10 ML SYRINGE IV PRN (11:11)
[2021-09-02] MEDS ORDERED: MAGNESIUM SULF RIDER 4 GM/100 ML PREMIX IV PRN (11:11)
[2021-09-02] MEDS ORDERED: ONDANSETRON 4 MG/2 ML VIAL IV PRN (11:11)
[2021-09-02] MEDS ORDERED: MIDAZOLAM 2 MG/2 ML VIAL IV PRN (11:11)
[2021-09-02] MEDS ORDERED: ACETAMINOPHEN 650 MG SUPP RECTAL PRN (11:11)
[2021-09-02] MEDS ORDERED: LACTATED RINGERS 250 ML IV PRN (11:11)
[2021-09-02] MEDS ORDERED: INSULIN REGULAR 100 UNIT/ML IV ONE (11:11)
[2021-09-02] MEDS ORDERED: PHENYLEPHRINE DRIP 40 MG/250 ML PREMIX IV PRN (11:11)
[2021-09-02] MEDS ORDERED: VECURONIUM 10 MG VIAL IV PRN ×2 (11:11)
[2021-09-02] MEDS ORDERED: INSULIN REGULAR 100 UNIT/ML IV PRN (11:11)
[2021-09-02] MEDS ORDERED: MAGNESIUM SULF RIDER 2 GM/50 ML PREMIX IV PRN (11:11)
[2021-09-02] MEDS ORDERED: DEXTROSE 50% 25 GM/50 ML SYRINGE IV PRN ×2 (11:18→11:20)
[2021-09-02] MEDS: SODIUM CHLORIDE 0.45% 1,000 ML IV SCH ×2 (11:33)
[2021-09-02] MEDS: LACTATED RINGERS 1,000 ML IV PRN ×3 (11:40→16:59)
[2021-09-02] MEDS ORDERED: HEPARIN/NACL 0.9% 2 UNITS/ML 1,000 UNIT/500 ML BAG IV ONE (11:52)
[2021-09-02] MEDS ORDERED: diphenhydrAMINE 50 MG/1 ML VIAL ONE (11:53)
[2021-09-02 12:10] LABS: ABG HCO3 25.3 MMOL/L (20-26); ABG Oxygen Saturation 98.6 % (95-100); ABG PCO2 41.2 MM HG (35-48); ABG PH 7.405 (7.35-7.45); ABG TCO2 23.8 MMOL/L (23-27); Glucose Heart Surgery 133 MG/DL (74-106); Hematocrit Heart Surgery 27.2 PERCENT (42-52); Hemoglobin Heart Surgery 8.8 G/DL (14.0-18.0); Potassium Heart/CVR 3.8 MMOL/L (3.5-5.1)
[2021-09-02] MEDS ORDERED: NITROPRUSSIDE 50 MG/2 ML VIAL ONE (12:17)
[2021-09-02 12:19] LABS: Basophils % 0.2 % (0.0-0.8); Eosinophils # 0.1 10*3/uL (0.0-0.87); Eosinophils % 1.8 % (0.00-10.9); Hematocrit 27.9 VOL% (42.0-52.0); Hemoglobin 8.7 GM/DL (14.0-18.0); Immature Granulocytes % 0.5 %; Immature Granulocytes Absolute 0.03 #; Lymphocytes # 0.6 10*3/uL (1.4-4.0); Mean Corpuscular HGB Conc 31.2 GM/DL (32-36); Mean Corpuscular Volume 102.6 FL (87-102); Mean Platelet Volume 10.9 FL (9.6-12.0); Monocytes % 6.6 % (1.7-12.7); Neutrophils % 79.9 % (38.7-73.9); Platelet Count 182 T/CUMM (130-400); Red Blood Count 2.72 MC/CUMM (3.8-5.5); Red Cell Distribution Width 12.9 % (9.3-17.3); White Blood Count 5.6 T/CUMM (4-12)
[2021-09-02 12:32] LABS: PT Patient Result 11.6 SECS (10.5-12.0); Partial Thromboplastin Time 25.7 SECS (23.8-32.1)
[2021-09-02 12:36] LABS: Albumin 3.5 G/DL (3.4-5.0); Bilirubin,Total 0.8 MG/DL (0.20-1.00); CKMB % 4.4 %; Calcium 8.5 MG/DL (8.5-10.1); Osmolality,Calculated 284.1 MOS/KG (273-304); Potassium 3.9 MMOL/L (3.5-5.1); Total Protein 6.1 G/DL (6.4-8.2)
[2021-09-02 12:38] LABS: High Sensitive Troponin I* 3200.7 ng/L (0-78)
[2021-09-02] MEDS: ALBUMIN 5% 12.5 GM/250 ML VIAL IV PRN ×2 (13:09→18:18)
[2021-09-02 13:32] LABS: ABG Base Excess -0.6 MMOL/L (-2.5-2.5); ABG HCO3 23.6 MMOL/L (20-26); ABG Oxygen Saturation 97.5 % (95-100); ABG PCO2 37.1 MM HG (35-48); ABG PH 7.422 (7.35-7.45); ABG PO2 105.2 MM HG (80-95); ABG TCO2 24.8 MMOL/L (23-27); Glucose Heart Surgery 140 MG/DL (74-106); Hemoglobin Heart Surgery 10.3 G/DL (14.0-18.0); Potassium Heart/CVR 3.7 MMOL/L (3.5-5.1)
[2021-09-02 15:47] LABS: ABG Base Excess 0.7 MMOL/L (-2.5-2.5); ABG Oxygen Saturation 97.6 % (95-100); ABG PH 7.417 (7.35-7.45); ABG TCO2 23.1 MMOL/L (23-27); Glucose Heart Surgery 172 MG/DL (74-106); Potassium Heart/CVR 3.9 MMOL/L (3.5-5.1)
[2021-09-02] MEDS: MORPHINE 10 MG/1 ML VIAL IV PRN ×2 (16:32→21:31)
[2021-09-02 17:12] LABS: ABG Base Excess -0.3 MMOL/L (-2.5-2.5); ABG HCO3 24.2 MMOL/L (20-26); ABG Oxygen Saturation 98.1 % (95-100); ABG PCO2 38.8 MM HG (35-48); ABG PH 7.404 (7.35-7.45); ABG PO2 98.3 MM HG (80-95); ABG TCO2 22.2 MMOL/L (23-27); Glucose Heart Surgery 177 MG/DL (74-106); Hematocrit Heart Surgery 29.1 PERCENT (42-52); Hemoglobin Heart Surgery 9.4 G/DL (14.0-18.0)
[2021-09-02] MEDS: POTASSIUM CHLORIDE RIDER 20 MEQ/100 ML PREMIX IV PRN (20:55)
[2021-09-02 21:20] LABS: High Sensitive Troponin I* 4292.2 ng/L (0-78)
[2021-09-02] MEDS ORDERED: FUROSEMIDE 40 MG/4 ML VIAL IV ONE (23:21)
[2021-09-02 23:31] LABS: ABG Base Excess -1.4 MMOL/L (-2.5-2.5); ABG HCO3 23.2 MMOL/L (20-26); ABG Oxygen Saturation 94.9 % (95-100); ABG PCO2 38.7 MM HG (35-48); ABG PH 7.389 (7.35-7.45); ABG PO2 76.1 MM HG (80-95); ABG TCO2 21.3 MMOL/L (23-27); Glucose Heart Surgery 165 MG/DL (74-106); Hematocrit Heart Surgery 30.3 PERCENT (42-52); Hemoglobin Heart Surgery 9.8 G/DL (14.0-18.0); Potassium Heart/CVR 4.3 MMOL/L (3.5-5.1)
[2021-09-02 23:56] LABS: VBG HCO3 23.8 MEQ/L (24-28); VBG Oxygen Saturation 57.1 %; VBG PCO2 44.8 MMHG (41-51); VBG PH 7.365; VBG PO2 32.9 MMHG (17-40); VBG Total CO2 23.6 MMOL/L
[2021-09-03] MEDS: POTASSIUM CHLORIDE RIDER 20 MEQ/100 ML PREMIX IV PRN ×2 (00:23→06:01)
[2021-09-03] MEDS: CHLORHEXIDINE 0.12% ORAL RINSE 60 ML BOTTLE SWISH/SPIT SCH ×3 (01:35→22:10)
[2021-09-03] MEDS: INSULIN REGULAR DRIP 100 ML IV SCH ×2 (01:36→12:34)
[2021-09-03 04:44] LABS: ABG Base Excess -0.5 MMOL/L (-2.5-2.5); ABG HCO3 23.9 MMOL/L (20-26); ABG Oxygen Saturation 95.2 % (95-100); ABG PH 7.399 (7.35-7.45); ABG PO2 76.7 MM HG (80-95); ABG TCO2 21.9 MMOL/L (23-27); Glucose Heart Surgery 171 MG/DL (74-106); Hematocrit 30.9 VOL% (42.0-52.0); Hematocrit Heart Surgery 30.8 PERCENT (42-52); Hemoglobin 9.7 GM/DL (14.0-18.0); Immature Granulocytes % 0.5 %; Immature Granulocytes Absolute 0.06 #; Lymphocytes # 0.4 10*3/uL (1.4-4.0); Lymphocytes % 3.4 % (21.2-54.2); Mean Corpuscular HGB Conc 31.4 GM/DL (32-36); Mean Corpuscular Volume 99.4 FL (87-102); Mean Platelet Volume 10.6 FL (9.6-12.0); Monocytes % 5.1 % (1.7-12.7); Platelet Count 207 T/CUMM (130-400); Potassium Heart/CVR 4.1 MMOL/L (3.5-5.1); Red Blood Count 3.11 MC/CUMM (3.8-5.5); Red Cell Distribution Width 15.6 % (9.3-17.3); White Blood Count 11.5 T/CUMM (4-12)
[2021-09-03 05:02] LABS: Albumin 3.8 G/DL (3.4-5.0); Bilirubin,Direct 0.45 MG/DL (0.0-0.20); Bilirubin,Total 1.1 MG/DL (0.20-1.00); Calcium 8.6 MG/DL (8.5-10.1); Osmolality,Calculated 285.3 MOS/KG (273-304); Potassium 4.1 MMOL/L (3.5-5.1); Total Protein 6.8 G/DL (6.4-8.2)
[2021-09-03 05:04] LABS: Hypochromasia 1+; Lymphocytes 5 % (20-55); Microcytosis 1+; Platelet Estimate Adequate; Segmented Neutrophils 92 % (50-85); Total Cells Counted 100
[2021-09-03 05:05] LABS: High Sensitive Troponin I* 3029.3 ng/L (0-78)
[2021-09-03] MEDS: MORPHINE 10 MG/1 ML VIAL IV PRN ×3 (05:39→17:15)
[2021-09-03 07:31] LABS: ABG Base Excess -0.6 MMOL/L (-2.5-2.5); ABG HCO3 23.8 MMOL/L (20-26); ABG Oxygen Saturation 90.6 % (95-100); ABG PCO2 38.6 MM HG (35-48); ABG PO2 62.5 MM HG (80-95); ABG TCO2 21.8 MMOL/L (23-27); Glucose Heart Surgery 188 MG/DL (74-106); Hematocrit Heart Surgery 30.7 PERCENT (42-52); Hemoglobin Heart Surgery 9.9 G/DL (14.0-18.0); Potassium Heart/CVR 4.2 MMOL/L (3.5-5.1)
[2021-09-03 08:41] LABS: ABG HCO3 23.4 MMOL/L (20-26); ABG Oxygen Saturation 89.5 % (95-100); ABG PCO2 36.8 MM HG (35-48); ABG PH 7.409 (7.35-7.45); ABG PO2 58.3 MM HG (80-95); ABG TCO2 21.2 MMOL/L (23-27); Glucose Heart Surgery 186 MG/DL (74-106); Hematocrit Heart Surgery 30.5 PERCENT (42-52); Hemoglobin Heart Surgery 9.9 G/DL (14.0-18.0)
[2021-09-03] MEDS ORDERED: MIDAZOLAM 2 MG/2 ML VIAL IV ONE (08:49)
[2021-09-03] MEDS: amLODIPine 10 MG TABLET PO SCH (09:23)
[2021-09-03] MEDS: METOPROLOL TARTRATE 50 MG TABLET PO SCH ×2 (09:23→21:55)
[2021-09-03] MEDS: ASPIRIN EC 81 MG TABLET PO SCH (09:23)
[2021-09-03] MEDS: KETOROLAC 30 MG/1 ML VIAL IV SCH ×3 (10:35→21:52)
[2021-09-03 11:24] LABS: CKMB % 1.4 %; High Sensitive Troponin I* 2379.3 ng/L (0-78)
[2021-09-03] MEDS: SODIUM CHLORIDE 0.45% 1,000 ML IV SCH ×2 (12:33)
[2021-09-03] MEDS: INSULIN REGULAR 100 UNIT/ML SUBCUT SCH ×2 (12:34→17:19)
[2021-09-03] MEDS: CEFUROXIME INJ 1,500 MG in SODIUM CHLORIDE 0.9% 100 ML IV SCH (21:51)
[2021-09-04] MEDS: INSULIN REGULAR 100 UNIT/ML SUBCUT SCH ×4 (02:48→16:00)
[2021-09-04] MEDS: MORPHINE 10 MG/1 ML VIAL IV PRN (04:15)
[2021-09-04] MEDS: KETOROLAC 30 MG/1 ML VIAL IV SCH ×4 (05:12→20:38)
[2021-09-04 05:36] LABS: Hematocrit 28.2 VOL% (42.0-52.0); Hemoglobin 8.7 GM/DL (14.0-18.0); Immature Granulocytes % 0.8 %; Lymphocytes # 0.7 10*3/uL (1.4-4.0); Lymphocytes % 5.1 % (21.2-54.2); Mean Corpuscular HGB Conc 30.9 GM/DL (32-36); Mean Corpuscular Volume 102.5 FL (87-102); Mean Platelet Volume 10.4 FL (9.6-12.0); Monocytes % 7.7 % (1.7-12.7); NRBC # 0.02 10*3/uL; Neutrophils % 86.4 % (38.7-73.9); Platelet Count 153 T/CUMM (130-400); Red Blood Count 2.75 MC/CUMM (3.8-5.5); Red Cell Distribution Width 15.2 % (9.3-17.3); White Blood Count 12.7 T/CUMM (4-12)
[2021-09-04 05:56] LABS: Albumin 3.5 G/DL (3.4-5.0); Bilirubin,Direct 0.33 MG/DL (0.0-0.20); Bilirubin,Total 1.2 MG/DL (0.20-1.00); Calcium 8.3 MG/DL (8.5-10.1); Osmolality,Calculated 285.3 MOS/KG (273-304); Potassium 4.3 MMOL/L (3.5-5.1); Total Protein 6.6 G/DL (6.4-8.2)
[2021-09-04 07:31] LABS: ABG Base Excess 0.9 MMOL/L (-2.5-2.5); ABG HCO3 25.1 MMOL/L (20-26); ABG PCO2 38.9 MM HG (35-48); ABG PH 7.421 (7.35-7.45); ABG PO2 60.9 MM HG (80-95); ABG TCO2 23.4 MMOL/L (23-27)
[2021-09-04] MEDS: amLODIPine 10 MG TABLET PO SCH (08:14)
[2021-09-04] MEDS: ASPIRIN EC 81 MG TABLET PO SCH (08:14)
[2021-09-04] MEDS: FOLIC ACID 1 MG TABLET PO SCH (08:14)
[2021-09-04] MEDS: METOPROLOL TARTRATE 50 MG TABLET PO SCH ×2 (08:14→20:37)
[2021-09-04] MEDS: CEFUROXIME INJ 1,500 MG in SODIUM CHLORIDE 0.9% 100 ML IV SCH ×2 (08:15→20:37)
[2021-09-04] MEDS: FERROUS SULFATE 325 MG TABLET PO SCH (08:15)
[2021-09-04] MEDS: CHLORHEXIDINE 0.12% ORAL RINSE 60 ML BOTTLE SWISH/SPIT SCH ×2 (08:16→20:50)
[2021-09-04] MEDS ORDERED: FUROSEMIDE 40 MG/4 ML VIAL IV ONE (08:23)
[2021-09-04] MEDS: SODIUM CHLOR 0.45% KCL 20 MEQ 20 MEQ/1,000 ML BAG IV SCH (08:30)
[2021-09-04] MEDS: ENOXAPARIN 40 MG/0.4 ML SYRINGE SUBCUT SCH (09:45)
[2021-09-04] MEDS ORDERED: WARFARIN 5 MG TABLET PO SCH (18:00)
[2021-09-04] MEDS: CLORAZEPATE 3.75 MG TABLET PO PRN (20:37)
[2021-09-04] MEDS: ATORVASTATIN 40 MG TABLET PO SCH (20:37)
[2021-09-04] MEDS ORDERED: ACETAMINOPHEN 325 MG TABLET PO PRN (20:57)
[2021-09-05] MEDS: INSULIN REGULAR 100 UNIT/ML SUBCUT SCH ×5 (00:29→21:56)
[2021-09-05] MEDS: MORPHINE 10 MG/1 ML VIAL IV PRN (00:55)
[2021-09-05] MEDS: KETOROLAC 30 MG/1 ML VIAL IV SCH ×4 (04:45→21:55)
[2021-09-05 05:18] LABS: Basophils % 0.1 % (0.0-0.8); Eosinophils % 0.3 % (0.00-10.9); Hemoglobin 8.5 GM/DL (14.0-18.0); Immature Granulocytes % 0.9 %; Lymphocytes # 1.3 10*3/uL (1.4-4.0); Mean Corpuscular HGB Conc 30.4 GM/DL (32-36); Mean Corpuscular Volume 102.2 FL (87-102); Mean Platelet Volume 10.9 FL (9.6-12.0); Monocytes % 8.1 % (1.7-12.7); NRBC # 0.05 10*3/uL; Neutrophils % 79.6 % (38.7-73.9); Platelet Count 152 T/CUMM (130-400); Red Blood Count 2.74 MC/CUMM (3.8-5.5); White Blood Count 11.6 T/CUMM (4-12)
[2021-09-05 05:33] LABS: Albumin 3.3 G/DL (3.4-5.0); Bilirubin,Direct 0.31 MG/DL (0.0-0.20); Bilirubin,Total 1.1 MG/DL (0.20-1.00); Calcium 8.5 MG/DL (8.5-10.1); Osmolality,Calculated 288.1 MOS/KG (273-304); Total Protein 6.8 G/DL (6.4-8.2)
[2021-09-05 05:34] LABS: INR 0.9; PT Patient Result 10.4 SECS (10.5-12.0)
[2021-09-05 07:32] LABS: ABG Base Excess 2.1 MMOL/L (-2.5-2.5); ABG HCO3 26.1 MMOL/L (20-26); ABG Oxygen Saturation 91.4 % (95-100); ABG PCO2 38.4 MM HG (35-48); ABG PH 7.451 (7.35-7.45); ABG PO2 59.9 MM HG (80-95); ABG TCO2 27.3 MMOL/L (23-27)
[2021-09-05] MEDS: METOPROLOL TARTRATE 50 MG TABLET PO SCH ×2 (08:09→21:55)
[2021-09-05] MEDS: CLORAZEPATE 3.75 MG TABLET PO PRN ×2 (08:09→21:56)
[2021-09-05] MEDS: ENOXAPARIN 40 MG/0.4 ML SYRINGE SUBCUT SCH (08:09)
[2021-09-05] MEDS: ASPIRIN EC 81 MG TABLET PO SCH (08:09)
[2021-09-05] MEDS: FOLIC ACID 1 MG TABLET PO SCH (08:09)
[2021-09-05] MEDS: FERROUS SULFATE 325 MG TABLET PO SCH (08:09)
[2021-09-05] MEDS: amLODIPine 10 MG TABLET PO SCH (08:09)
[2021-09-05] MEDS: CHLORHEXIDINE 0.12% ORAL RINSE 60 ML BOTTLE SWISH/SPIT SCH ×2 (08:14→21:55)
[2021-09-05] MEDS ORDERED: METOPROLOL TARTRATE 50 MG TABLET PO ONE (09:53)
[2021-09-05] MEDS: predniSONE 20 MG TABLET PO SCH ×2 (09:58→21:55)
[2021-09-05] MEDS ORDERED: SODIUM CHLORIDE 0.9% 1,000 ML IV SCH (10:00)
[2021-09-05] MEDS ORDERED: POTASSIUM CHLORIDE 20 MEQ TABLET PO PRN (10:38)
[2021-09-05] MEDS ORDERED: MAGNESIUM SULF RIDER 2 GM/50 ML PREMIX IV PRN (10:38)
[2021-09-05] MEDS ORDERED: ZALEPLON 5 MG CAPSULE PO PRN (10:38)
[2021-09-05] MEDS ORDERED: MAGNESIUM SULF RIDER 4 GM/100 ML PREMIX IV PRN (10:38)
[2021-09-05] MEDS ORDERED: ONDANSETRON 4 MG/2 ML VIAL IV PRN (10:38)
[2021-09-05] MEDS ORDERED: DEXTROSE 50% 25 GM/50 ML SYRINGE IV PRN (10:38)
[2021-09-05] MEDS ORDERED: MAGNESIUM HYDROXIDE SUSP 30 ML UDCUP PO PRN (10:38)
[2021-09-05] MEDS ORDERED: ACETAMINOPHEN 325 MG TABLET PO PRN (10:38)
[2021-09-05] MEDS ORDERED: ALUMINUM/MAGNES/SIMETH MAX STR 30 ML UDCUP PO PRN (10:38)
[2021-09-05] MEDS ORDERED: GLUCAGON 1 MG VIAL IM PRN (10:38)
[2021-09-05] MEDS: ASCORBIC ACID 500 MG TABLET PO SCH ×2 (10:49→21:55)
[2021-09-05] MEDS: SODIUM CHLOR 0.45% KCL 20 MEQ 20 MEQ/1,000 ML BAG IV SCH (10:51)
[2021-09-05] MEDS ORDERED: WARFARIN 10 MG TABLET PO ONE (18:00)
[2021-09-05] MEDS: ATORVASTATIN 40 MG TABLET PO SCH (21:56)
[2021-09-06] MEDS: KETOROLAC 30 MG/1 ML VIAL IV SCH ×4 (03:27→21:16)
[2021-09-06 05:23] LABS: Basophils % 0.2 % (0.0-0.8); Eosinophils % 0.1 % (0.00-10.9); Hematocrit 28.7 VOL% (42.0-52.0); Hemoglobin 8.9 GM/DL (14.0-18.0); Immature Granulocytes Absolute 0.13 #; Lymphocytes # 0.7 10*3/uL (1.4-4.0); Lymphocytes % 5.4 % (21.2-54.2); Mean Corpuscular Volume 102.5 FL (87-102); Mean Platelet Volume 11.6 FL (9.6-12.0); Monocytes % 5.4 % (1.7-12.7); NRBC # 0.03 10*3/uL; Neutrophils % 87.9 % (38.7-73.9); Platelet Count 187 T/CUMM (130-400); Red Cell Distribution Width 14.6 % (9.3-17.3)
[2021-09-06 05:31] LABS: PT Patient Result 10.7 SECS (10.5-12.0)
[2021-09-06 05:46] LABS: Osmolality,Calculated 284.4 MOS/KG (273-304); Potassium 4.6 MMOL/L (3.5-5.1)
[2021-09-06 05:51] LABS: Alanine Aminotransferase 44 U/L (16-61); Albumin 3.3 G/DL (3.4-5.0); Alkaline Phosphatase 103 U/L (45-117); Aspartate Amino Transferase 30 U/L (0-37); Bilirubin,Indirect 0.9 MG/DL (0.0-1.0); Blood Urea Nitrogen 22 MG/DL (7-18); Calcium 9.1 MG/DL (8.5-10.1); Carbon Dioxide 24 MMOL/L (21-32); Estimated Glom Filtration Rate 166 ML/MIN; Glucose 130 MG/DL (74-106); Osmolality,Calculated 287.1 MOS/KG (273-304); Potassium 4.4 MMOL/L (3.5-5.1); Sodium 142 MMOL/L (136-145); Total Protein 7.1 G/DL (6.4-8.2)
[2021-09-06] MEDS ORDERED: PIPERACILLIN/TAZOBACTAM 4,500 MG in SODIUM CHLORIDE 0.9% 100 ML IV SCH (09:30)
[2021-09-06] MEDS: INSULIN REGULAR 100 UNIT/ML SUBCUT SCH ×4 (09:38→21:16)
[2021-09-06] MEDS: FOLIC ACID 1 MG TABLET PO SCH (09:39)
[2021-09-06] MEDS: ASPIRIN EC 81 MG TABLET PO SCH (09:39)
[2021-09-06] MEDS: DOCUSATE SODIUM 100 MG CAPSULE PO SCH (09:39)
[2021-09-06] MEDS: FERROUS SULFATE 325 MG TABLET PO SCH (09:39)
[2021-09-06] MEDS: METOPROLOL TARTRATE 50 MG TABLET PO SCH ×2 (09:40→21:15)
[2021-09-06] MEDS: FUROSEMIDE 40 MG TABLET PO SCH (09:40)
[2021-09-06] MEDS: ENOXAPARIN 40 MG/0.4 ML SYRINGE SUBCUT SCH (09:40)
[2021-09-06] MEDS: amLODIPine 10 MG TABLET PO SCH (09:40)
[2021-09-06] MEDS: predniSONE 20 MG TABLET PO SCH ×2 (09:41→21:15)
[2021-09-06] MEDS: ASCORBIC ACID 500 MG TABLET PO SCH ×2 (09:41→21:15)
[2021-09-06] MEDS: CHLORHEXIDINE 0.12% ORAL RINSE 60 ML BOTTLE SWISH/SPIT SCH ×2 (09:41→21:17)
[2021-09-06] MEDS: PANTOPRAZOLE 40 MG TABLET PO SCH (09:41)
[2021-09-06] MEDS: PIPERACILLIN/TAZOBACTAM 3,375 MG in SODIUM CHLORIDE 0.9% 100 ML IV SCH ×2 (11:23→18:16)
[2021-09-06] MEDS: CLORAZEPATE 3.75 MG TABLET PO PRN ×2 (11:25→18:08)
[2021-09-06] MEDS: LEVALBUTEROL 0.63 MG/3 ML NEB RESP TX SCH ×3 (13:45→20:11)
[2021-09-06] MEDS ORDERED: WARFARIN 10 MG TABLET PO ONE (18:00)
[2021-09-06] MEDS: ATORVASTATIN 40 MG TABLET PO SCH (21:16)
[2021-09-07] MEDS: LEVALBUTEROL 0.63 MG/3 ML NEB RESP TX SCH ×4 (01:54→19:53)
[2021-09-07] MEDS: CLORAZEPATE 3.75 MG TABLET PO PRN ×3 (02:00→21:27)
[2021-09-07] MEDS: PIPERACILLIN/TAZOBACTAM 3,375 MG in SODIUM CHLORIDE 0.9% 100 ML IV SCH ×3 (02:00→18:19)
[2021-09-07] MEDS: KETOROLAC 30 MG/1 ML VIAL IV SCH ×4 (03:48→21:27)
[2021-09-07 04:36] LABS: Basophils % 0.1 % (0.0-0.8); Eosinophils % 0.1 % (0.00-10.9); Hematocrit 28.3 VOL% (42.0-52.0); Hemoglobin 8.8 GM/DL (14.0-18.0); Immature Granulocytes % 1.5 %; Immature Granulocytes Absolute 0.21 #; Lymphocytes % 7.2 % (21.2-54.2); Mean Corpuscular HGB Conc 31.1 GM/DL (32-36); Mean Corpuscular Volume 101.1 FL (87-102); NRBC # 0.07 10*3/uL; Neutrophils % 86.1 % (38.7-73.9); Platelet Count 216 T/CUMM (130-400); Red Cell Distribution Width 14.6 % (9.3-17.3); White Blood Count 13.9 T/CUMM (4-12)
[2021-09-07 04:45] LABS: INR 1.1; PT Patient Result 12.6 SECS (10.5-12.0)
[2021-09-07 04:59] LABS: Alanine Aminotransferase 68 U/L (16-61); Albumin 3.3 G/DL (3.4-5.0); Alkaline Phosphatase 130 U/L (45-117); Aspartate Amino Transferase 40 U/L (0-37); Bilirubin,Indirect 0.4 MG/DL (0.0-1.0); Blood Urea Nitrogen 22 MG/DL (7-18); Calcium 8.9 MG/DL (8.5-10.1); Carbon Dioxide 23 MMOL/L (21-32); Estimated Glom Filtration Rate 148 ML/MIN; Glucose 147 MG/DL (74-106); Osmolality,Calculated 280.7 MOS/KG (273-304); Potassium 4.1 MMOL/L (3.5-5.1); Sodium 138 MMOL/L (136-145); Total Protein 6.7 G/DL (6.4-8.2)
[2021-09-07] MEDS: INSULIN REGULAR 100 UNIT/ML SUBCUT SCH ×4 (09:05→22:46)
[2021-09-07] MEDS: ASPIRIN EC 81 MG TABLET PO SCH (09:05)
[2021-09-07] MEDS: DOCUSATE SODIUM 100 MG CAPSULE PO SCH (09:05)
[2021-09-07] MEDS: FERROUS SULFATE 325 MG TABLET PO SCH (09:06)
[2021-09-07] MEDS: LOSARTAN 25 MG TABLET PO SCH (09:06)
[2021-09-07] MEDS: FUROSEMIDE 40 MG TABLET PO SCH (09:06)
[2021-09-07] MEDS: METOPROLOL TARTRATE 50 MG TABLET PO SCH ×2 (09:06→21:26)
[2021-09-07] MEDS: ENOXAPARIN 40 MG/0.4 ML SYRINGE SUBCUT SCH (09:07)
[2021-09-07] MEDS: CHLORHEXIDINE 0.12% ORAL RINSE 60 ML BOTTLE SWISH/SPIT SCH ×2 (09:07→22:46)
[2021-09-07] MEDS: amLODIPine 10 MG TABLET PO SCH (09:07)
[2021-09-07] MEDS: FOLIC ACID 1 MG TABLET PO SCH (09:07)
[2021-09-07] MEDS: predniSONE 20 MG TABLET PO SCH (09:07)
[2021-09-07] MEDS: PANTOPRAZOLE 40 MG TABLET PO SCH (09:08)
[2021-09-07] MEDS: ASCORBIC ACID 500 MG TABLET PO SCH ×2 (09:08→21:26)
[2021-09-07] MEDS ORDERED: WARFARIN 10 MG TABLET PO SCH (18:00)
[2021-09-07] MEDS: ATORVASTATIN 40 MG TABLET PO SCH (21:27)
[2021-09-08] MEDS: PIPERACILLIN/TAZOBACTAM 3,375 MG in SODIUM CHLORIDE 0.9% 100 ML IV SCH ×2 (01:44→08:38)
[2021-09-08] MEDS: LEVALBUTEROL 0.63 MG/3 ML NEB RESP TX SCH ×2 (01:56→07:37)
[2021-09-08] MEDS: KETOROLAC 30 MG/1 ML VIAL IV SCH (03:20)
[2021-09-08 05:22] LABS: Basophils % 0.1 % (0.0-0.8); Eosinophils # 0.1 10*3/uL (0.0-0.87); Eosinophils % 0.4 % (0.00-10.9); Hematocrit 29.6 VOL% (42.0-52.0); Hemoglobin 9.4 GM/DL (14.0-18.0); Immature Granulocytes % 2.3 %; Immature Granulocytes Absolute 0.31 #; Lymphocytes # 1.8 10*3/uL (1.4-4.0); Lymphocytes % 12.9 % (21.2-54.2); Mean Corpuscular HGB Conc 31.8 GM/DL (32-36); Monocytes % 6.8 % (1.7-12.7); NRBC # 0.11 10*3/uL; Neutrophils % 77.5 % (38.7-73.9); Platelet Count 243 T/CUMM (130-400); Red Blood Count 2.93 MC/CUMM (3.8-5.5); Red Cell Distribution Width 14.7 % (9.3-17.3); White Blood Count 13.7 T/CUMM (4-12)
[2021-09-08 05:37] LABS: INR 1.3; PT Patient Result 14.1 SECS (10.5-12.0)
[2021-09-08 05:41] LABS: Calcium 8.9 MG/DL (8.5-10.1); Osmolality,Calculated 278.7 MOS/KG (273-304); Potassium 3.5 MMOL/L (3.5-5.1)
[2021-09-08 05:45] LABS: Albumin 3.3 G/DL (3.4-5.0); Bilirubin,Direct 0.28 MG/DL (0.0-0.20); Bilirubin,Indirect 0.7 MG/DL (0.0-1.0); Total Protein 6.3 G/DL (6.4-8.2)
[2021-09-08 07:42] VITALS: BP 139/93
[2021-09-08] MEDS: INSULIN REGULAR 100 UNIT/ML SUBCUT SCH (08:39)
[2021-09-08] MEDS: ENOXAPARIN 40 MG/0.4 ML SYRINGE SUBCUT SCH (08:39)
[2021-09-08] MEDS: DOCUSATE SODIUM 100 MG CAPSULE PO SCH (08:40)
[2021-09-08] MEDS: CHLORHEXIDINE 0.12% ORAL RINSE 60 ML BOTTLE SWISH/SPIT SCH (08:40)
[2021-09-08] MEDS: amLODIPine 10 MG TABLET PO SCH (08:40)
[2021-09-08] MEDS: CLORAZEPATE 3.75 MG TABLET PO PRN (08:40)
[2021-09-08] MEDS: FOLIC ACID 1 MG TABLET PO SCH (08:40)
[2021-09-08] MEDS: predniSONE 20 MG TABLET PO SCH (08:41)
[2021-09-08] MEDS: METOPROLOL TARTRATE 50 MG TABLET PO SCH (08:41)
[2021-09-08] MEDS: FERROUS SULFATE 325 MG TABLET PO SCH (08:41)
[2021-09-08] MEDS: ASCORBIC ACID 500 MG TABLET PO SCH (08:41)
[2021-09-08] MEDS: FUROSEMIDE 40 MG TABLET PO SCH (08:41)
[2021-09-08] MEDS: LOSARTAN 25 MG TABLET PO SCH (08:42)
[2021-09-08] MEDS: PANTOPRAZOLE 40 MG TABLET PO SCH (08:42)
[2021-09-08] MEDS: ASPIRIN EC 81 MG TABLET PO SCH (08:42)
[2021-09-08] MEDS ORDERED: POLYETHYLENE GLYCOL POWDER 17 GM PACK PO SCH (09:00)
[2021-09-08] MEDS ORDERED: WARFARIN 7.5 MG TABLET PO SCH (18:00)
== END 2021-09-08 12:20 | disposition home health service (06) | DRG 220 ==
LOC: N.2E 12:27 → N.CVR 09-02 11:11 → N.ICU 09-03 09:44 → N.TELES 09-05 11:07
PROC: CABGAVR (ICD-10-PCS; 2021-09-02 06:44)

== ENCOUNTER 2021-09-13 23:05 | Inpatient (IN) ==
[2021-09-13] MEDS ORDERED: HEPARIN 5,000 UNIT/1 ML VIAL ONE (23:16)
[2021-09-13] MEDS ORDERED: fentaNYL 100 MCG/2 ML VIAL IV STA (23:16)
[2021-09-13] MEDS ORDERED: HEPARIN 1,000 UNIT/1 ML VIAL IV STA (23:16)
[2021-09-13] MEDS ORDERED: HEPARIN 5,000 UNIT/1 ML VIAL IV STA (23:19)
[2021-09-13] MEDS ORDERED: SODIUM CHLORIDE 0.9% 1,000 ML IV STA (23:20)
[2021-09-13 23:26] LABS: Basophils % 0.1 % (0.0-0.8); Eosinophils % 0.1 % (0.00-10.9); Hematocrit 25.6 VOL% (42.0-52.0); Hemoglobin 7.7 GM/DL (14.0-18.0); Immature Granulocytes % 2.3 %; Immature Granulocytes Absolute 0.58 #; Lymphocytes # 1.5 10*3/uL (1.4-4.0); Lymphocytes % 6.1 % (21.2-54.2); Mean Corpuscular HGB Conc 30.1 GM/DL (32-36); Mean Corpuscular Volume 104.1 FL (87-102); Mean Platelet Volume 11.3 FL (9.6-12.0); Monocytes % 10.1 % (1.7-12.7); Neutrophils % 81.3 % (38.7-73.9); Platelet Count 169 T/CUMM (130-400); Red Blood Count 2.46 MC/CUMM (3.8-5.5); White Blood Count 24.8 T/CUMM (4-12)
[2021-09-13 23:35] LABS: INR 1.1; PT Patient Result 12.5 SECS (10.5-12.0); Partial Thromboplastin Time 33.1 SECS (23.8-32.1)
[2021-09-13] MEDS ORDERED: MIDAZOLAM 2 MG/2 ML VIAL ONE (23:39)
[2021-09-13] MEDS ORDERED: fentaNYL 100 MCG/2 ML VIAL ONE (23:39)
[2021-09-13 23:46] LABS: Lymphocytes 3 % (20-55); Platelet Estimate Normal; Segmented Neutrophils 85 % (50-85); Total Cells Counted 100
[2021-09-13 23:47] LABS: Hypochromia Slight
[2021-09-13] MEDS ORDERED: ETOMIDATE 20 MG/10 ML VIAL IV STA (23:47)
[2021-09-13] MEDS ORDERED: ETOMIDATE 20 MG/10 ML VIAL IV ONE (23:47)
[2021-09-13] MEDS ORDERED: VECURONIUM 10 MG VIAL IV STA (23:47)
[2021-09-13] MEDS ORDERED: VECURONIUM 10 MG VIAL IV ONE (23:48)
[2021-09-14] MEDS ORDERED: NITROGLYCERIN 2% OINT 1 INCH/GM PACK TOP ONE (00:12)
[2021-09-14 00:15] LABS: Albumin 3.5 G/DL (3.4-5.0); Bilirubin,Total 0.9 MG/DL (0.20-1.00); Calcium 9.1 MG/DL (8.5-10.1); Osmolality,Calculated 281.2 MOS/KG (273-304); Potassium 5.4 MMOL/L (3.5-5.1); Total Protein 6.9 G/DL (6.4-8.2)
[2021-09-14] MEDS ORDERED: HEPARIN/NACL 0.9% 2 UNITS/ML 1,000 UNIT/500 ML BAG IV ONE ×2 (00:24→02:31)
[2021-09-14] MEDS ORDERED: PHENYLEPHRINE 50 MG/5 ML VIAL ONE (00:46)
[2021-09-14] MEDS ORDERED: PHENYLEPHRINE DRIP 40 MG/250 ML PREMIX IV ONE (00:59)
[2021-09-14] MEDS ORDERED: NITROPRUSSIDE 50 MG/2 ML VIAL ONE (00:59)
[2021-09-14] MEDS ORDERED: SODIUM BICARBONATE 50 MEQ/50 ML VIAL IV ONE ×5 (00:59→05:38)
[2021-09-14] MEDS ORDERED: POTASSIUM CHLORIDE RIDER 20 MEQ/100 ML PREMIX IV ONE (00:59)
[2021-09-14] MEDS ORDERED: CALCIUM CHLORIDE 1,000 MG/10 ML SYRINGE IV ONE (01:00)
[2021-09-14] MEDS ORDERED: SODIUM BICARBONATE 50 MEQ/50 ML SYRINGE IV ONE (01:00)
[2021-09-14] MEDS ORDERED: SUFentanil 250 MCG/5 ML AMP ONE ×2 (01:16→02:18)
[2021-09-14] MEDS ORDERED: MIDAZOLAM 10 MG/2 ML VIAL ONE ×4 (01:16→02:18)
[2021-09-14] MEDS ORDERED: ePHEDrine 50 MG/ML VIAL ONE ×2 (01:20→02:17)
[2021-09-14] MEDS ORDERED: SEVOFLURANE 1 UNIT/15 MINUTE INH ONE ×8 (01:21→03:19)
[2021-09-14] MEDS ORDERED: VANCOMYCIN 1,000 MG VIAL ONE (01:21)
[2021-09-14] MEDS ORDERED: AMINOCAPROIC ACID 5,000 MG/20 ML VIAL ONE (01:22)
[2021-09-14] MEDS ORDERED: PHENYLEPHRINE 10 MG/1 ML VIAL IV ONE (01:29)
[2021-09-14] MEDS ORDERED: SODIUM CHLORIDE 0.9% 500 ML IV ONE (01:29)
[2021-09-14] MEDS ORDERED: LIDOCAINE 2% 5 ML VIAL ONE (01:30)
[2021-09-14] MEDS ORDERED: LACTATED RINGERS 1,000 ML IV ONE (01:31)
[2021-09-14] MEDS ORDERED: SODIUM CHLORIDE 0.9% 1,000 ML IV ONE ×3 (01:31→03:18)
[2021-09-14 01:42] LABS: ABG Base Excess -12.3 MMOL/L (-2.5-2.5); ABG HCO3 14.6 MMOL/L (20-26); ABG Oxygen Saturation 97.2 % (95-100); ABG PCO2 44.8 MM HG (35-48); ABG TCO2 15.4 MMOL/L (23-27)
[2021-09-14 01:51] LABS: ABG PH 7.154 (7.35-7.45)
[2021-09-14] MEDS ORDERED: SODIUM BICARB INJ 150 MEQ in STERILE WATER INJ 850 ML IV SCH (02:00)
[2021-09-14] MEDS ORDERED: VECURONIUM 10 MG VIAL IV ONE (02:06)
[2021-09-14] MEDS ORDERED: MINERAL OIL/PETROLATUM OPH OINT 3.5 GM TUBE ONE (02:08)
[2021-09-14] MEDS ORDERED: CALCIUM CHLORIDE 1,000 MG/10 ML VIAL IV ONE ×2 (02:14→02:47)
[2021-09-14] MEDS ORDERED: PROTAMINE SULFATE 50 MG/5 ML VIAL IV ONE (02:45)
[2021-09-14] MEDS ORDERED: EPINEPHrine 1 MG/ML VIAL ONE ×2 (02:54→03:18)
[2021-09-14 03:03] LABS: ABG Base Excess -9.2 MMOL/L (-2.5-2.5); ABG HCO3 17.5 MMOL/L (20-26); ABG Oxygen Saturation 98.6 % (95-100); ABG PH 7.237 (7.35-7.45); ABG PO2 185.6 MM HG (80-95); ABG TCO2 18.8 MMOL/L (23-27); Glucose Heart Surgery 122 MG/DL (74-106); Ionized Calcium Arterial 1.38 MMOL/L (1.21-1.46); Potassium Heart/CVR 5.3 MMOL/L (3.5-5.1); Sodium Heart/CVR 132 MMOL/L (135-145)
[2021-09-14 03:05] LABS: Patient Temperature 37 CELCIUS
[2021-09-14] MEDS ORDERED: SODIUM CHLORIDE 0.9% 250 ML IV ONE (03:15)
[2021-09-14] MEDS ORDERED: PHENYLEPHRINE DRIP 40 MG/250 ML PREMIX IV PRN ×2 (03:33→04:54)
[2021-09-14 04:06] LABS: ABG Base Excess -9.2 MMOL/L (-2.5-2.5); ABG HCO3 17.3 MMOL/L (20-26); ABG Oxygen Saturation 94.6 % (95-100); ABG PCO2 40.1 MM HG (35-48); ABG PH 7.252 (7.35-7.45); ABG PO2 95.3 MM HG (80-95); ABG TCO2 18.5 MMOL/L (23-27); Glucose Heart Surgery 138 MG/DL (74-106); Hemoglobin Heart Surgery 8.6 G/DL (14.0-18.0); Potassium Heart/CVR 4.7 MMOL/L (3.5-5.1)
[2021-09-14 04:22] LABS: Basophils % 0.2 % (0.0-0.8); Eosinophils % 0.4 % (0.00-10.9); Hematocrit 19.6 VOL% (42.0-52.0); Immature Granulocytes % 6.9 %; Immature Granulocytes Absolute 0.77 #; Lymphocytes # 0.6 10*3/uL (1.4-4.0); Lymphocytes % 5.7 % (21.2-54.2); Mean Corpuscular HGB Conc 29.6 GM/DL (32-36); Mean Corpuscular Volume 103.7 FL (87-102); Mean Platelet Volume 10.7 FL (9.6-12.0); Monocytes % 2.4 % (1.7-12.7); NRBC # 0.69 10*3/uL; Neutrophils % 84.4 % (38.7-73.9); Platelet Count 102 T/CUMM (130-400); Red Blood Count 1.89 MC/CUMM (3.8-5.5); Red Cell Distribution Width 15.7 % (9.3-17.3); White Blood Count 11.1 T/CUMM (4-12)
[2021-09-14 04:25] LABS: Hemoglobin 5.8 GM/DL (14.0-18.0)
[2021-09-14 04:32] LABS: INR 1.2; PT Patient Result 13.2 SECS (10.5-12.0)
[2021-09-14 04:42] LABS: Alanine Aminotransferase 32 U/L (16-61); Albumin 2.2 G/DL (3.4-5.0); Alkaline Phosphatase 96 U/L (45-117); Aspartate Amino Transferase 18 U/L (0-37); Blood Urea Nitrogen 34 MG/DL (7-18); Calcium 8.5 MG/DL (8.5-10.1); Carbon Dioxide 18 MMOL/L (21-32); Estimated Glom Filtration Rate 65 ML/MIN; Glucose 146 MG/DL (74-106); Osmolality,Calculated 285.7 MOS/KG (273-304); Potassium 4.8 MMOL/L (3.5-5.1); Sodium 138 MMOL/L (136-145); Total Protein 4.8 G/DL (6.4-8.2)
[2021-09-14 04:43] LABS: Band Neutrophils 3 % (0-10); Hypochromia 2+; Lymphocytes 8 % (20-55); Microcytosis 1+; Nucleated Red Blood Cells 6 (0-5); Platelet Estimate Decreased; Segmented Neutrophils 87 % (50-85); Total Cells Counted 100
[2021-09-14] MEDS ORDERED: POTASSIUM CHLORIDE RIDER 10 MEQ/100 ML PREMIX IV PRN (04:54)
[2021-09-14] MEDS ORDERED: INSULIN REGULAR 100 UNIT/ML IV ONE (04:54)
[2021-09-14] MEDS ORDERED: MAGNESIUM SULF RIDER 2 GM/50 ML PREMIX IV PRN (04:54)
[2021-09-14] MEDS ORDERED: LACTATED RINGERS 250 ML IV PRN (04:54)
[2021-09-14] MEDS ORDERED: ALBUMIN 5% 12.5 GM/250 ML VIAL IV PRN (04:54)
[2021-09-14] MEDS ORDERED: NITROPRUSSIDE 100 MG in DEXTROSE 5% 250 ML IV PRN (04:54)
[2021-09-14] MEDS ORDERED: MAGNESIUM SULF RIDER 4 GM/100 ML PREMIX IV PRN (04:54)
[2021-09-14] MEDS: SODIUM CHLORIDE 0.45% 1,000 ML IV SCH ×2 (04:54)
[2021-09-14] MEDS ORDERED: INSULIN REGULAR 100 UNIT/ML IV PRN (04:54)
[2021-09-14] MEDS ORDERED: DEXTROSE 50% 25 GM/50 ML SYRINGE IV PRN ×3 (04:54→17:13)
[2021-09-14] MEDS ORDERED: CALCIUM CHLORIDE 1,000 MG/10 ML SYRINGE IV PRN (04:54)
[2021-09-14] MEDS ORDERED: POTASSIUM CHLORIDE RIDER 20 MEQ/100 ML PREMIX IV PRN (04:54)
[2021-09-14] MEDS ORDERED: VECURONIUM 10 MG VIAL IV PRN ×2 (04:54)
[2021-09-14] MEDS ORDERED: ACETAMINOPHEN 650 MG SUPP RECTAL PRN (04:54)
[2021-09-14] MEDS ORDERED: MIDAZOLAM 10 MG/2 ML VIAL IV PRN (04:54)
[2021-09-14] MEDS ORDERED: ONDANSETRON 4 MG/2 ML VIAL IV PRN (04:54)
[2021-09-14] MEDS ORDERED: MIDAZOLAM 2 MG/2 ML VIAL IV PRN (04:54)
[2021-09-14 05:34] LABS: ABG Base Excess -7.7 MMOL/L (-2.5-2.5); ABG HCO3 18.1 MMOL/L (20-26); ABG Oxygen Saturation 97.8 % (95-100); ABG PCO2 35.5 MM HG (35-48); ABG TCO2 16.8 MMOL/L (23-27); Glucose Heart Surgery 149 MG/DL (74-106); Hematocrit Heart Surgery 24.9 PERCENT (42-52); Potassium Heart/CVR 4.8 MMOL/L (3.5-5.1)
[2021-09-14 07:12] LABS: ABG Base Excess -4.8 MMOL/L (-2.5-2.5); ABG HCO3 20.4 MMOL/L (20-26); ABG Oxygen Saturation 99.6 % (95-100); ABG PCO2 33.8 MM HG (35-48); ABG PH 7.375 (7.35-7.45); ABG TCO2 18.3 MMOL/L (23-27); Glucose Heart Surgery 143 MG/DL (74-106); Hematocrit Heart Surgery 26.6 PERCENT (42-52); Hemoglobin Heart Surgery 8.5 G/DL (14.0-18.0)
[2021-09-14 09:43] LABS: ABG Base Excess -4.5 MMOL/L (-2.5-2.5); ABG HCO3 20.7 MMOL/L (20-26); ABG Oxygen Saturation 98.6 % (95-100); ABG PCO2 32.1 MM HG (35-48); ABG PH 7.394 (7.35-7.45); Glucose Heart Surgery 150 MG/DL (74-106); Hematocrit Heart Surgery 29.1 PERCENT (42-52); Hemoglobin Heart Surgery 9.4 G/DL (14.0-18.0); Potassium Heart/CVR 4.8 MMOL/L (3.5-5.1)
[2021-09-14] MEDS: INSULIN REGULAR DRIP 100 ML IV SCH (10:35)
[2021-09-14] MEDS: INSULIN GLARGINE 100 UNIT/ML SUBCUT SCH ×2 (10:36→15:11)
[2021-09-14] MEDS: CHLORHEXIDINE 0.12% ORAL RINSE 60 ML BOTTLE SWISH/SPIT SCH ×2 (10:36→20:31)
[2021-09-14 11:18] LABS: ABG Base Excess -4.3 MMOL/L (-2.5-2.5); ABG HCO3 20.8 MMOL/L (20-26); ABG Oxygen Saturation 97.7 % (95-100); ABG PCO2 32.5 MM HG (35-48); ABG PH 7.394 (7.35-7.45); ABG TCO2 18.2 MMOL/L (23-27); Glucose Heart Surgery 143 MG/DL (74-106); Hematocrit Heart Surgery 29.2 PERCENT (42-52); Hemoglobin Heart Surgery 9.4 G/DL (14.0-18.0); Potassium Heart/CVR 4.9 MMOL/L (3.5-5.1)
[2021-09-14 12:30] LABS: ABG Oxygen Saturation 95.1 % (95-100); ABG PCO2 30.3 MM HG (35-48); ABG PH 7.419 (7.35-7.45); ABG PO2 76.9 MM HG (80-95); Glucose Heart Surgery 138 MG/DL (74-106); Hematocrit Heart Surgery 29.3 PERCENT (42-52); Hemoglobin Heart Surgery 9.5 G/DL (14.0-18.0); Potassium Heart/CVR 4.9 MMOL/L (3.5-5.1)
[2021-09-14 13:47] LABS: ABG Base Excess -3.4 MMOL/L (-2.5-2.5); ABG HCO3 21.5 MMOL/L (20-26); ABG PCO2 29.6 MM HG (35-48); ABG PH 7.436 (7.35-7.45); ABG PO2 80.4 MM HG (80-95); ABG TCO2 18.2 MMOL/L (23-27); Glucose Heart Surgery 133 MG/DL (74-106); Hematocrit Heart Surgery 29.8 PERCENT (42-52); Hemoglobin Heart Surgery 9.6 G/DL (14.0-18.0); Potassium Heart/CVR 4.8 MMOL/L (3.5-5.1)
[2021-09-14] MEDS: MORPHINE 10 MG/1 ML VIAL IV PRN ×2 (14:05→16:10)
[2021-09-14 15:38] LABS: ABG Base Excess -3.8 MMOL/L (-2.5-2.5); ABG HCO3 21.2 MMOL/L (20-26); ABG Oxygen Saturation 92.2 % (95-100); ABG PCO2 29.7 MM HG (35-48); ABG PH 7.429 (7.35-7.45); ABG PO2 66.5 MM HG (80-95); Glucose Heart Surgery 134 MG/DL (74-106); Hematocrit Heart Surgery 29.7 PERCENT (42-52); Hemoglobin Heart Surgery 9.6 G/DL (14.0-18.0); Potassium Heart/CVR 4.7 MMOL/L (3.5-5.1)
[2021-09-14] MEDS: METOPROLOL TARTRATE 25 MG TABLET PO SCH ×2 (15:41→20:00)
[2021-09-14] MEDS ORDERED: GLUCAGON 1 MG VIAL IM PRN (17:07)
[2021-09-14] MEDS: VANCOMYCIN INJ 1,000 MG in SODIUM CHLORIDE 0.9% 250 ML IV SCH (17:51)
[2021-09-14 18:01] LABS: ABG Base Excess -6.5 MMOL/L (-2.5-2.5); ABG HCO3 19.1 MMOL/L (20-26); ABG Oxygen Saturation 97.8 % (95-100); ABG PCO2 30.7 MM HG (35-48); ABG PH 7.373 (7.35-7.45); ABG TCO2 16.5 MMOL/L (23-27); Glucose Heart Surgery 162 MG/DL (74-106); Hematocrit Heart Surgery 27.8 PERCENT (42-52); Potassium Heart/CVR 4.4 MMOL/L (3.5-5.1)
[2021-09-14] MEDS ORDERED: SODIUM CHLORIDE 0.9% 1,000 ML IV PRN (19:00)
[2021-09-14] MEDS: INSULIN LISPRO 100 UNIT/ML SUBCUT SCH ×2 (19:30→23:21)
[2021-09-14] MEDS ORDERED: FUROSEMIDE 40 MG/4 ML VIAL IV ONE (19:45)
[2021-09-14] MEDS: oxyCODONE/ACETAMINOPHEN 5-325 MG TABLET PO PRN ×2 (19:58→23:43)
[2021-09-14 23:50] LABS: ABG Base Excess -3.7 MMOL/L (-2.5-2.5); ABG HCO3 21.3 MMOL/L (20-26); ABG Oxygen Saturation 98.8 % (95-100); ABG PCO2 32.9 MM HG (35-48); ABG PH 7.401 (7.35-7.45); ABG TCO2 18.6 MMOL/L (23-27); Glucose Heart Surgery 132 MG/DL (74-106); Hematocrit Heart Surgery 29.9 PERCENT (42-52); Hemoglobin Heart Surgery 9.7 G/DL (14.0-18.0); Potassium Heart/CVR 4.4 MMOL/L (3.5-5.1)
[2021-09-15] MEDS: INSULIN LISPRO 100 UNIT/ML SUBCUT SCH ×5 (03:54→21:49)
[2021-09-15] MEDS: oxyCODONE/ACETAMINOPHEN 5-325 MG TABLET PO PRN ×3 (03:54→20:33)
[2021-09-15 03:55] LABS: ABG Oxygen Saturation 97.7 % (95-100); ABG PCO2 31.5 MM HG (35-48); ABG PH 7.398 (7.35-7.45); ABG PO2 116.8 MM HG (80-95)
[2021-09-15 03:56] LABS: Basophils % 0.1 % (0.0-0.8); Eosinophils # 0.1 10*3/uL (0.0-0.87); Eosinophils % 0.8 % (0.00-10.9); Hematocrit 28.9 VOL% (42.0-52.0); Hemoglobin 9.1 GM/DL (14.0-18.0); Immature Granulocytes % 1.2 %; Immature Granulocytes Absolute 0.18 #; Lymphocytes # 0.9 10*3/uL (1.4-4.0); Lymphocytes % 6.1 % (21.2-54.2); Mean Corpuscular HGB Conc 31.5 GM/DL (32-36); Mean Corpuscular Volume 94.8 FL (87-102); Mean Platelet Volume 10.7 FL (9.6-12.0); Monocytes % 7.8 % (1.7-12.7); Platelet Count 95 T/CUMM (130-400); Red Blood Count 3.05 MC/CUMM (3.8-5.5); Red Cell Distribution Width 16.7 % (9.3-17.3); White Blood Count 14.7 T/CUMM (4-12)
[2021-09-15 04:03] LABS: INR 1.3; PT Patient Result 14.1 SECS (10.5-12.0)
[2021-09-15 04:15] LABS: Albumin 2.7 G/DL (3.4-5.0); Bilirubin,Direct 0.3 MG/DL (0.0-0.20); Bilirubin,Total 0.6 MG/DL (0.20-1.00); Calcium 8.1 MG/DL (8.5-10.1); Osmolality,Calculated 281.7 MOS/KG (273-304); Potassium 4.2 MMOL/L (3.5-5.1); Total Protein 5.9 G/DL (6.4-8.2)
[2021-09-15 04:17] LABS: Hypochromia 1+; Microcytosis 1+; Ovalocytes Slight; Platelet Estimate Decreased; Polychromasia Slight
[2021-09-15 04:18] LABS: Tear Drop Cells Slight
[2021-09-15] MEDS: VANCOMYCIN INJ 1,000 MG in SODIUM CHLORIDE 0.9% 250 ML IV SCH ×2 (06:13→16:26)
[2021-09-15] MEDS: INSULIN REGULAR DRIP 100 ML IV SCH (06:47)
[2021-09-15] MEDS: SODIUM CHLORIDE 0.45% 1,000 ML IV SCH ×2 (06:47)
[2021-09-15] MEDS: HYDROmorphone 2 MG/1 ML VIAL IV PRN ×2 (08:15→11:59)
[2021-09-15] MEDS ORDERED: CALCIUM CHLORIDE 1,000 MG/10 ML SYRINGE IV ONE (08:43)
[2021-09-15] MEDS: METOPROLOL TARTRATE 50 MG TABLET PO SCH ×2 (09:46→20:32)
[2021-09-15] MEDS: POTASSIUM CHLORIDE 20 MEQ TABLET PO SCH ×2 (09:46→20:34)
[2021-09-15] MEDS: FUROSEMIDE 40 MG/4 ML VIAL IV SCH ×2 (09:46→16:10)
[2021-09-15] MEDS: INSULIN GLARGINE 100 UNIT/ML SUBCUT SCH (09:46)
[2021-09-15] MEDS: CHLORHEXIDINE 0.12% ORAL RINSE 60 ML BOTTLE SWISH/SPIT SCH ×2 (09:48→21:49)
[2021-09-15] MEDS ORDERED: CALCIUM GLUCONATE 1,000 MG in SODIUM CHLORIDE 0.9% 100 ML IV ONE (10:30)
[2021-09-15] MEDS: WARFARIN 5 MG TABLET PO SCH (17:16)
[2021-09-16] MEDS: INSULIN LISPRO 100 UNIT/ML SUBCUT SCH ×5 (00:28→16:34)
[2021-09-16 06:16] LABS: Basophils % 0.1 % (0.0-0.8); Eosinophils # 0.1 10*3/uL (0.0-0.87); Eosinophils % 1.2 % (0.00-10.9); Hematocrit 29.9 VOL% (42.0-52.0); Hemoglobin 9.3 GM/DL (14.0-18.0); Immature Granulocytes Absolute 0.12 #; Lymphocytes # 0.6 10*3/uL (1.4-4.0); Lymphocytes % 4.9 % (21.2-54.2); Mean Corpuscular HGB Conc 31.1 GM/DL (32-36); Mean Corpuscular Volume 95.2 FL (87-102); Mean Platelet Volume 11.3 FL (9.6-12.0); Monocytes % 7.7 % (1.7-12.7); NRBC # 0.05 10*3/uL; Neutrophils % 85.1 % (38.7-73.9); Platelet Count 118 T/CUMM (130-400); Red Blood Count 3.14 MC/CUMM (3.8-5.5); Red Cell Distribution Width 16.5 % (9.3-17.3); White Blood Count 11.7 T/CUMM (4-12)
[2021-09-16 06:29] LABS: INR 1.4; PT Patient Result 15.2 SECS (10.5-12.0)
[2021-09-16] MEDS: INSULIN REGULAR DRIP 100 ML IV SCH (06:38)
[2021-09-16] MEDS: VANCOMYCIN INJ 1,000 MG in SODIUM CHLORIDE 0.9% 250 ML IV SCH (06:52)
[2021-09-16 07:57] LABS: Albumin 2.8 G/DL (3.4-5.0); Bilirubin,Direct 0.42 MG/DL (0.0-0.20); Calcium 8.2 MG/DL (8.5-10.1); Osmolality,Calculated 281.4 MOS/KG (273-304); Potassium 3.9 MMOL/L (3.5-5.1); Total Protein 5.8 G/DL (6.4-8.2)
[2021-09-16] MEDS ORDERED: LORazepam 1 MG TABLET PO PRN (08:50)
[2021-09-16 09:14] LABS: Eosinophils 2 % (0-10); Lymphocytes 7 % (20-55); Microcytosis 1+; Nucleated Red Blood Cells 1 (0-5); Ovalocytes Slight; Platelet Estimate Adequate; Segmented Neutrophils 89 % (50-85); Total Cells Counted 100
[2021-09-16] MEDS: POTASSIUM CHLORIDE 20 MEQ TABLET PO SCH ×2 (09:17→20:45)
[2021-09-16] MEDS: oxyCODONE/ACETAMINOPHEN 5-325 MG TABLET PO PRN ×4 (09:17→20:55)
[2021-09-16] MEDS: CHLORHEXIDINE 0.12% ORAL RINSE 60 ML BOTTLE SWISH/SPIT SCH ×2 (09:17→20:58)
[2021-09-16] MEDS: PANTOPRAZOLE 40 MG TABLET PO SCH (09:17)
[2021-09-16] MEDS: ASCORBIC ACID 500 MG TABLET PO SCH ×2 (09:17→20:45)
[2021-09-16] MEDS: METOPROLOL TARTRATE 50 MG TABLET PO SCH ×2 (09:17→20:55)
[2021-09-16] MEDS: FUROSEMIDE 40 MG/4 ML VIAL IV SCH ×2 (09:18→16:58)
[2021-09-16] MEDS: INSULIN GLARGINE 100 UNIT/ML SUBCUT SCH (09:20)
[2021-09-16] MEDS: WARFARIN 5 MG TABLET PO SCH (17:46)
[2021-09-17] MEDS: INSULIN LISPRO 100 UNIT/ML SUBCUT SCH ×7 (00:36→23:34)
[2021-09-17] MEDS: oxyCODONE/ACETAMINOPHEN 5-325 MG TABLET PO PRN ×5 (03:07→23:47)
[2021-09-17] MEDS: HYDROmorphone 2 MG/1 ML VIAL IV PRN ×3 (03:36→18:01)
[2021-09-17] MEDS: INSULIN REGULAR DRIP 100 ML IV SCH (05:00)
[2021-09-17 05:44] LABS: Basophils % 0.2 % (0.0-0.8); Eosinophils # 0.1 10*3/uL (0.0-0.87); Eosinophils % 0.9 % (0.00-10.9); Hematocrit 31.2 VOL% (42.0-52.0); Hemoglobin 9.8 GM/DL (14.0-18.0); Immature Granulocytes % 0.9 %; Immature Granulocytes Absolute 0.09 #; Lymphocytes # 0.6 10*3/uL (1.4-4.0); Lymphocytes % 6.1 % (21.2-54.2); Mean Corpuscular HGB Conc 31.4 GM/DL (32-36); Mean Platelet Volume 11.3 FL (9.6-12.0); NRBC # 0.06 10*3/uL; Neutrophils % 79.9 % (38.7-73.9); Platelet Count 151 T/CUMM (130-400); Red Blood Count 3.32 MC/CUMM (3.8-5.5); Red Cell Distribution Width 16.2 % (9.3-17.3); White Blood Count 9.7 T/CUMM (4-12)
[2021-09-17 06:14] LABS: Calcium 8.7 MG/DL (8.5-10.1); Osmolality,Calculated 274.8 MOS/KG (273-304); Potassium 4.2 MMOL/L (3.5-5.1)
[2021-09-17 06:19] LABS: Albumin 2.9 G/DL (3.4-5.0); Bilirubin,Direct 0.38 MG/DL (0.0-0.20); Calcium 8.4 MG/DL (8.5-10.1); Total Protein 6.2 G/DL (6.4-8.2)
[2021-09-17 07:08] LABS: INR 1.4; PT Patient Result 15.8 SECS (10.5-12.0)
[2021-09-17] MEDS: ASCORBIC ACID 500 MG TABLET PO SCH ×2 (08:36→20:30)
[2021-09-17] MEDS: PANTOPRAZOLE 40 MG TABLET PO SCH (08:36)
[2021-09-17] MEDS: CHLORHEXIDINE 0.12% ORAL RINSE 60 ML BOTTLE SWISH/SPIT SCH ×2 (08:37→20:35)
[2021-09-17] MEDS: METOPROLOL TARTRATE 50 MG TABLET PO SCH ×2 (08:37→20:31)
[2021-09-17] MEDS: INSULIN GLARGINE 100 UNIT/ML SUBCUT SCH (09:02)
[2021-09-17] MEDS: CLORAZEPATE 7.5 MG TABLET PO PRN (15:35)
[2021-09-17] MEDS: WARFARIN 5 MG TABLET PO SCH (18:02)
[2021-09-18] MEDS: oxyCODONE/ACETAMINOPHEN 5-325 MG TABLET PO PRN ×3 (01:13→20:48)
[2021-09-18] MEDS: HYDROmorphone 2 MG/1 ML VIAL IV PRN ×5 (02:10→22:09)
[2021-09-18] MEDS: INSULIN LISPRO 100 UNIT/ML SUBCUT SCH ×5 (03:47→20:09)
[2021-09-18 05:10] LABS: Basophils % 0.2 % (0.0-0.8); Eosinophils # 0.1 10*3/uL (0.0-0.87); Eosinophils % 1.4 % (0.00-10.9); Hematocrit 30.3 VOL% (42.0-52.0); Hemoglobin 9.3 GM/DL (14.0-18.0); Immature Granulocytes % 0.8 %; Immature Granulocytes Absolute 0.07 #; Lymphocytes # 0.6 10*3/uL (1.4-4.0); Lymphocytes % 6.7 % (21.2-54.2); Mean Corpuscular HGB Conc 30.7 GM/DL (32-36); Mean Corpuscular Volume 94.1 FL (87-102); Mean Platelet Volume 10.5 FL (9.6-12.0); Monocytes % 8.9 % (1.7-12.7); NRBC # 0.05 10*3/uL; Platelet Count 180 T/CUMM (130-400); Red Blood Count 3.22 MC/CUMM (3.8-5.5); Red Cell Distribution Width 16.2 % (9.3-17.3); White Blood Count 8.9 T/CUMM (4-12)
[2021-09-18 05:18] LABS: INR 1.4; PT Patient Result 15.1 SECS (10.5-12.0)
[2021-09-18 05:26] LABS: Calcium 8.4 MG/DL (8.5-10.1); Osmolality,Calculated 274.8 MOS/KG (273-304); Potassium 4.2 MMOL/L (3.5-5.1)
[2021-09-18] MEDS: INSULIN REGULAR DRIP 100 ML IV SCH (07:31)
[2021-09-18] MEDS: PANTOPRAZOLE 40 MG TABLET PO SCH (09:12)
[2021-09-18] MEDS: ASCORBIC ACID 500 MG TABLET PO SCH ×2 (09:12→20:47)
[2021-09-18] MEDS: METOPROLOL TARTRATE 100 MG TABLET PO SCH ×2 (09:12→20:47)
[2021-09-18] MEDS: ASPIRIN EC 81 MG TABLET PO SCH (09:12)
[2021-09-18] MEDS: CHLORHEXIDINE 0.12% ORAL RINSE 60 ML BOTTLE SWISH/SPIT SCH ×2 (09:13→20:49)
[2021-09-18] MEDS: INSULIN GLARGINE 100 UNIT/ML SUBCUT SCH (09:13)
[2021-09-18] MEDS ORDERED: IBUPROFEN 400 MG TABLET PO PRN (10:30)
[2021-09-18] MEDS ORDERED: ACETAMINOPHEN 325 MG TABLET PO PRN (10:51)
[2021-09-18] MEDS ORDERED: diphenhydrAMINE 50 MG/1 ML VIAL IV PRN ×2 (10:51)
[2021-09-18] MEDS ORDERED: diphenhydrAMINE CAP 25 MG CAPSULE PO PRN (10:51)
[2021-09-18] MEDS ORDERED: diphenhydrAMINE CAP 50 MG CAPSULE PO PRN (10:51)
[2021-09-18] MEDS ORDERED: DEXAMETHASONE 0.5 MG TABLET PO SCH (11:00)
[2021-09-18 12:45] LABS: Bacteria,Urine Occasional /HPF (Few); Bilirubin,Urine Negative (Negative); Blood, Urine Negative (Negative); Glucose,Urine (UA) Negative (Negative); Ketones,Urine Negative (Negative); Mucus,Urine Occasional /LPF (Occasional); Nitrite,Urine Negative (Negative); Protein,Urine 100 MG/DL; RBC,Urine 15 /HPF (0-4); Squamous Epithelial Cell,Urine Occasional /HPF (0-10); Urine Appearance CLEAR (Clear); Urine Color Yellow (Yellow); Urine Specific Gravity 1.016 (1.001-1.035)
[2021-09-18] MEDS ORDERED: GLUCAGON 1 MG VIAL IM PRN (14:33)
[2021-09-18] MEDS ORDERED: ONDANSETRON 4 MG/2 ML VIAL IV PRN (14:33)
[2021-09-18] MEDS ORDERED: MAGNESIUM HYDROXIDE SUSP 30 ML UDCUP PO PRN (14:33)
[2021-09-18] MEDS ORDERED: ZALEPLON 5 MG CAPSULE PO PRN (14:33)
[2021-09-18] MEDS ORDERED: MAGNESIUM SULF RIDER 4 GM/100 ML PREMIX IV PRN (14:33)
[2021-09-18] MEDS ORDERED: MAGNESIUM SULF RIDER 2 GM/50 ML PREMIX IV PRN (14:33)
[2021-09-18] MEDS ORDERED: POTASSIUM CHLORIDE 20 MEQ TABLET PO PRN (14:33)
[2021-09-18] MEDS ORDERED: ALUMINUM/MAGNES/SIMETH MAX STR 30 ML UDCUP PO PRN (14:33)
[2021-09-18] MEDS ORDERED: DEXTROSE 50% 25 GM/50 ML SYRINGE IV PRN (14:43)
[2021-09-18] MEDS: DEXAMETHASONE 4 MG TABLET PO SCH (15:05)
[2021-09-18] MEDS: WARFARIN 7.5 MG TABLET PO SCH (18:25)
[2021-09-18] MEDS: ACETAMINOPHEN 325 MG TABLET PO PRN (18:25)
[2021-09-18] MEDS: GABAPENTIN 300 MG CAPSULE PO SCH (20:47)
[2021-09-19] MEDS: INSULIN LISPRO 100 UNIT/ML SUBCUT SCH ×6 (00:16→20:38)
[2021-09-19] MEDS: oxyCODONE/ACETAMINOPHEN 5-325 MG TABLET PO PRN ×4 (01:51→17:50)
[2021-09-19] MEDS: CLORAZEPATE 7.5 MG TABLET PO PRN ×2 (01:51→14:24)
[2021-09-19 04:45] LABS: Hematocrit 28.2 VOL% (42.0-52.0); Hemoglobin 8.8 GM/DL (14.0-18.0); Immature Granulocytes % 0.8 %; Immature Granulocytes Absolute 0.07 #; Lymphocytes # 0.3 10*3/uL (1.4-4.0); Lymphocytes % 3.5 % (21.2-54.2); Mean Corpuscular HGB Conc 31.2 GM/DL (32-36); Mean Corpuscular Volume 94.9 FL (87-102); Mean Platelet Volume 10.4 FL (9.6-12.0); Monocytes % 6.3 % (1.7-12.7); NRBC # 0.02 10*3/uL; Neutrophils % 89.4 % (38.7-73.9); Platelet Count 193 T/CUMM (130-400); Red Blood Count 2.97 MC/CUMM (3.8-5.5); Red Cell Distribution Width 16.1 % (9.3-17.3); White Blood Count 8.9 T/CUMM (4-12)
[2021-09-19 04:55] LABS: INR 1.4; PT Patient Result 15.3 SECS (10.5-12.0)
[2021-09-19 05:06] LABS: Lymphocytes 4 % (20-55); Platelet Estimate Adequate; Segmented Neutrophils 93 % (50-85); Total Cells Counted 100
[2021-09-19 05:07] LABS: Hypochromia 1+; Microcytosis 1+
[2021-09-19 05:08] LABS: Calcium 8.7 MG/DL (8.5-10.1); Osmolality,Calculated 270.2 MOS/KG (273-304); Potassium 4.4 MMOL/L (3.5-5.1)
[2021-09-19 05:42] LABS: Alanine Aminotransferase 26 U/L (16-61); Albumin 2.5 G/DL (3.4-5.0); Alkaline Phosphatase 214 U/L (45-117); Aspartate Amino Transferase 26 U/L (0-37); Bilirubin,Indirect 0.3 MG/DL (0.0-1.0); Blood Urea Nitrogen 16 MG/DL (7-18); Calcium 8.4 MG/DL (8.5-10.1); Carbon Dioxide 21 MMOL/L (21-32); Estimated Glom Filtration Rate 150 ML/MIN; Glucose 130 MG/DL (74-106); Osmolality,Calculated 270.2 MOS/KG (273-304); Potassium 4.5 MMOL/L (3.5-5.1); Sodium 134 MMOL/L (136-145); Total Protein 6.6 G/DL (6.4-8.2)
[2021-09-19] MEDS ORDERED: DOCUSATE SODIUM 100 MG CAPSULE PO SCH (09:00)
[2021-09-19] MEDS ORDERED: FUROSEMIDE 40 MG/4 ML VIAL IV ONE (09:01)
[2021-09-19] MEDS: ASCORBIC ACID 500 MG TABLET PO SCH ×2 (10:01→20:49)
[2021-09-19] MEDS: METOPROLOL TARTRATE 100 MG TABLET PO SCH ×2 (10:01→20:48)
[2021-09-19] MEDS: GABAPENTIN 300 MG CAPSULE PO SCH ×2 (10:01→20:49)
[2021-09-19] MEDS: CHLORHEXIDINE 0.12% ORAL RINSE 60 ML BOTTLE SWISH/SPIT SCH ×2 (10:02→20:49)
[2021-09-19] MEDS: FERROUS SULFATE 325 MG TABLET PO SCH (10:02)
[2021-09-19] MEDS: PANTOPRAZOLE 40 MG TABLET PO SCH (10:02)
[2021-09-19] MEDS: ASPIRIN EC 81 MG TABLET PO SCH (10:02)
[2021-09-19] MEDS: DEXAMETHASONE 4 MG TABLET PO SCH (10:06)
[2021-09-19] MEDS: INSULIN GLARGINE 100 UNIT/ML SUBCUT SCH (10:19)
[2021-09-19] MEDS: guaiFENesin/DM ER 600-30 MG TABLET PO PRN (12:30)
[2021-09-19] MEDS: PIPERACILLIN/TAZOBACTAM 3,375 MG in SODIUM CHLORIDE 0.9% 100 ML IV SCH ×2 (14:24→20:48)
[2021-09-19] MEDS: FUROSEMIDE 40 MG/4 ML VIAL IV SCH (16:36)
[2021-09-19] MEDS: WARFARIN 7.5 MG TABLET PO SCH (17:49)
[2021-09-19] MEDS: DOCUSATE SODIUM 100 MG CAPSULE PO SCH (20:48)
[2021-09-20] MEDS: INSULIN LISPRO 100 UNIT/ML SUBCUT SCH ×6 (00:31→20:45)
[2021-09-20] MEDS: PIPERACILLIN/TAZOBACTAM 3,375 MG in SODIUM CHLORIDE 0.9% 100 ML IV SCH ×3 (03:45→20:45)
[2021-09-20] MEDS: ACETAMINOPHEN 325 MG TABLET PO PRN (03:54)
[2021-09-20] MEDS: HYDROmorphone 2 MG/1 ML VIAL IV PRN ×2 (03:54→21:20)
[2021-09-20 05:29] LABS: Hematocrit 31.8 VOL% (42.0-52.0); Hemoglobin 9.9 GM/DL (14.0-18.0); Immature Granulocytes % 0.7 %; Immature Granulocytes Absolute 0.08 #; Lymphocytes # 0.6 10*3/uL (1.4-4.0); Lymphocytes % 5.3 % (21.2-54.2); Mean Corpuscular HGB Conc 31.1 GM/DL (32-36); Mean Corpuscular Volume 93.3 FL (87-102); Mean Platelet Volume 11.1 FL (9.6-12.0); Monocytes % 5.6 % (1.7-12.7); NRBC # 0.02 10*3/uL; Neutrophils % 88.4 % (38.7-73.9); Platelet Count 289 T/CUMM (130-400); Red Blood Count 3.41 MC/CUMM (3.8-5.5)
[2021-09-20 05:48] LABS: INR 1.5
[2021-09-20 06:13] LABS: Alkaline Phosphatase 219 U/L (45-117); Aspartate Amino Transferase 28 U/L (0-37); Calcium 8.7 MG/DL (8.5-10.1)
[2021-09-20 06:14] LABS: Albumin 2.7 G/DL (3.4-5.0); Bilirubin,Total 0.63 MG/DL (0.20-1.00); Blood Urea Nitrogen 21 MG/DL (7-18); Carbon Dioxide 24 MMOL/L (21-32); Estimated Glom Filtration Rate 152 ML/MIN; Glucose 127 MG/DL (74-106); Osmolality,Calculated 272.2 MOS/KG (273-304); Potassium 4.1 MMOL/L (3.5-5.1); Sodium 134 MMOL/L (136-145); Total Protein 7.1 G/DL (6.4-8.2)
[2021-09-20 06:15] LABS: High Sensitive Troponin I* 109.5 ng/L (0-78)
[2021-09-20 06:36] LABS: Alanine Aminotransferase 32 U/L (16-61); Bilirubin,Direct 0.265 MG/DL (0.0-0.20); Bilirubin,Indirect 0.4 MG/DL (0.0-1.0)
[2021-09-20] MEDS: CHOLECALCIFEROL 1,000 UNIT TABLET PO SCH (08:47)
[2021-09-20] MEDS: ZINC GLUCONATE 50 MG TABLET PO SCH (08:47)
[2021-09-20] MEDS: FUROSEMIDE 40 MG/4 ML VIAL IV SCH ×2 (08:47→16:29)
[2021-09-20] MEDS: DEXAMETHASONE 4 MG TABLET PO SCH (08:47)
[2021-09-20] MEDS: METOPROLOL TARTRATE 100 MG TABLET PO SCH ×2 (08:47→20:45)
[2021-09-20] MEDS: INSULIN GLARGINE 100 UNIT/ML SUBCUT SCH (08:47)
[2021-09-20] MEDS: PANTOPRAZOLE 40 MG TABLET PO SCH (08:48)
[2021-09-20] MEDS: ASCORBIC ACID 500 MG TABLET PO SCH ×2 (08:48→20:45)
[2021-09-20] MEDS: DOCUSATE SODIUM 100 MG CAPSULE PO SCH ×2 (08:48→21:30)
[2021-09-20] MEDS: ASPIRIN EC 81 MG TABLET PO SCH (08:48)
[2021-09-20] MEDS: FERROUS SULFATE 325 MG TABLET PO SCH (08:48)
[2021-09-20] MEDS: GABAPENTIN 300 MG CAPSULE PO SCH ×2 (08:48→20:45)
[2021-09-20] MEDS: BARICITINIB 2 MG TABLET PO SCH (08:48)
[2021-09-20] MEDS: CHLORHEXIDINE 0.12% ORAL RINSE 60 ML BOTTLE SWISH/SPIT SCH ×2 (08:49→20:45)
[2021-09-20] MEDS: oxyCODONE/ACETAMINOPHEN 5-325 MG TABLET PO PRN ×2 (09:59→20:45)
[2021-09-20] MEDS: LOSARTAN 25 MG TABLET PO SCH (10:58)
[2021-09-20] MEDS: guaiFENesin/DM ER 600-30 MG TABLET PO PRN (16:29)
[2021-09-20] MEDS: WARFARIN 7.5 MG TABLET PO SCH (18:08)
[2021-09-20] MEDS: ZALEPLON 5 MG CAPSULE PO PRN (20:45)
[2021-09-20] MEDS: ROSUVASTATIN 20 MG TABLET PO SCH (20:45)
[2021-09-21] MEDS: INSULIN LISPRO 100 UNIT/ML SUBCUT SCH ×7 (00:29→23:13)
[2021-09-21] MEDS: PIPERACILLIN/TAZOBACTAM 3,375 MG in SODIUM CHLORIDE 0.9% 100 ML IV SCH ×3 (03:55→20:30)
[2021-09-21] MEDS: oxyCODONE/ACETAMINOPHEN 5-325 MG TABLET PO PRN ×2 (05:00→20:30)
[2021-09-21 05:57] LABS: Basophils % 0.1 % (0.0-0.8); Hematocrit 37.3 VOL% (42.0-52.0); Hemoglobin 11.3 GM/DL (14.0-18.0); Immature Granulocytes Absolute 0.13 #; Lymphocytes % 7.5 % (21.2-54.2); Mean Corpuscular HGB Conc 30.3 GM/DL (32-36); Mean Platelet Volume 10.7 FL (9.6-12.0); Monocytes % 5.8 % (1.7-12.7); NRBC # 0.03 10*3/uL; Neutrophils % 85.6 % (38.7-73.9); Platelet Count 378 T/CUMM (130-400); Red Blood Count 3.97 MC/CUMM (3.8-5.5); Red Cell Distribution Width 16.2 % (9.3-17.3); White Blood Count 13.3 T/CUMM (4-12)
[2021-09-21 06:09] LABS: PT Patient Result 21.5 SECS (10.5-12.0)
[2021-09-21 06:16] LABS: Calcium 9.2 MG/DL (8.5-10.1); Osmolality,Calculated 275.1 MOS/KG (273-304)
[2021-09-21] MEDS: INSULIN GLARGINE 100 UNIT/ML SUBCUT SCH (09:07)
[2021-09-21] MEDS: guaiFENesin/DM ER 600-30 MG TABLET PO PRN (09:07)
[2021-09-21] MEDS: ASCORBIC ACID 500 MG TABLET PO SCH ×2 (09:07→20:30)
[2021-09-21] MEDS: ZINC GLUCONATE 50 MG TABLET PO SCH (09:07)
[2021-09-21] MEDS: BARICITINIB 2 MG TABLET PO SCH (09:07)
[2021-09-21] MEDS: CHOLECALCIFEROL 1,000 UNIT TABLET PO SCH (09:08)
[2021-09-21] MEDS: LOSARTAN 25 MG TABLET PO SCH (09:08)
[2021-09-21] MEDS: PANTOPRAZOLE 40 MG TABLET PO SCH (09:08)
[2021-09-21] MEDS: GABAPENTIN 300 MG CAPSULE PO SCH ×2 (09:08→20:30)
[2021-09-21] MEDS: ASPIRIN EC 81 MG TABLET PO SCH (09:08)
[2021-09-21] MEDS: DEXAMETHASONE 4 MG TABLET PO SCH (09:08)
[2021-09-21] MEDS: FUROSEMIDE 40 MG TABLET PO SCH ×2 (09:09→16:35)
[2021-09-21] MEDS: FERROUS SULFATE 325 MG TABLET PO SCH (09:09)
[2021-09-21] MEDS: METOPROLOL TARTRATE 100 MG TABLET PO SCH ×2 (09:09→20:30)
[2021-09-21] MEDS: CHLORHEXIDINE 0.12% ORAL RINSE 60 ML BOTTLE SWISH/SPIT SCH ×2 (09:10→20:30)
[2021-09-21] MEDS: DOCUSATE SODIUM 100 MG CAPSULE PO SCH ×2 (09:11→20:30)
[2021-09-21] MEDS: WARFARIN 7.5 MG TABLET PO SCH (18:04)
[2021-09-21] MEDS: CLORAZEPATE 7.5 MG TABLET PO PRN (20:30)
[2021-09-21] MEDS: ROSUVASTATIN 20 MG TABLET PO SCH (20:30)
[2021-09-21] MEDS: ZALEPLON 5 MG CAPSULE PO PRN (20:45)
[2021-09-22] MEDS: PIPERACILLIN/TAZOBACTAM 3,375 MG in SODIUM CHLORIDE 0.9% 100 ML IV SCH ×3 (04:00→20:28)
[2021-09-22] MEDS: INSULIN LISPRO 100 UNIT/ML SUBCUT SCH ×5 (04:34→20:00)
[2021-09-22 06:07] LABS: Basophils % 0.1 % (0.0-0.8); Hematocrit 36.7 VOL% (42.0-52.0); Hemoglobin 11.3 GM/DL (14.0-18.0); Immature Granulocytes % 0.7 %; Immature Granulocytes Absolute 0.07 #; Lymphocytes # 1.1 10*3/uL (1.4-4.0); Lymphocytes % 10.8 % (21.2-54.2); Mean Corpuscular HGB Conc 30.8 GM/DL (32-36); Mean Corpuscular Volume 91.8 FL (87-102); Mean Platelet Volume 11.1 FL (9.6-12.0); Monocytes % 7.3 % (1.7-12.7); Neutrophils % 81.1 % (38.7-73.9); Platelet Count 418 T/CUMM (130-400); Red Cell Distribution Width 16.1 % (9.3-17.3)
[2021-09-22 06:12] LABS: INR 1.8; PT Patient Result 19.9 SECS (10.5-12.0)
[2021-09-22 06:31] LABS: Calcium 9.1 MG/DL (8.5-10.1); Osmolality,Calculated 278.8 MOS/KG (273-304); Potassium 3.8 MMOL/L (3.5-5.1)
[2021-09-22 06:33] LABS: Platelet Estimate Normal
[2021-09-22 06:34] LABS: Anisocytosis Slight; Macrocytosis Slight
[2021-09-22 06:34] LABS: Ferritin 1238.8 ng/mL (26-388)
[2021-09-22 06:37] LABS: Alanine Aminotransferase 92 U/L (16-61); Albumin 2.6 G/DL (3.4-5.0); Alkaline Phosphatase 211 U/L (45-117); Aspartate Amino Transferase 76 U/L (0-37); Bilirubin,Indirect 1.1 MG/DL (0.0-1.0); Blood Urea Nitrogen 28 MG/DL (7-18); Carbon Dioxide 23 MMOL/L (21-32); Estimated Glom Filtration Rate 132 ML/MIN; Glucose 95 MG/DL (74-106); Osmolality,Calculated 278.8 MOS/KG (273-304); Potassium 4.2 MMOL/L (3.5-5.1); Sodium 137 MMOL/L (136-145); Total Protein 7.5 G/DL (6.4-8.2)
[2021-09-22] MEDS: INSULIN GLARGINE 100 UNIT/ML SUBCUT SCH (08:54)
[2021-09-22] MEDS: BARICITINIB 2 MG TABLET PO SCH (08:55)
[2021-09-22] MEDS: ZINC GLUCONATE 50 MG TABLET PO SCH (08:55)
[2021-09-22] MEDS: ASPIRIN EC 81 MG TABLET PO SCH (08:55)
[2021-09-22] MEDS: GABAPENTIN 300 MG CAPSULE PO SCH ×2 (08:55→20:31)
[2021-09-22] MEDS: ASCORBIC ACID 500 MG TABLET PO SCH ×2 (08:55→20:31)
[2021-09-22] MEDS: DEXAMETHASONE 4 MG TABLET PO SCH (08:55)
[2021-09-22] MEDS: DOCUSATE SODIUM 100 MG CAPSULE PO SCH ×2 (08:55→20:29)
[2021-09-22] MEDS: CHOLECALCIFEROL 1,000 UNIT TABLET PO SCH (08:55)
[2021-09-22] MEDS: FUROSEMIDE 40 MG TABLET PO SCH ×2 (08:56→16:56)
[2021-09-22] MEDS: PANTOPRAZOLE 40 MG TABLET PO SCH (08:56)
[2021-09-22] MEDS: CHLORHEXIDINE 0.12% ORAL RINSE 60 ML BOTTLE SWISH/SPIT SCH ×2 (08:56→20:30)
[2021-09-22] MEDS: LOSARTAN 25 MG TABLET PO SCH (08:56)
[2021-09-22] MEDS: FERROUS SULFATE 325 MG TABLET PO SCH (08:56)
[2021-09-22] MEDS: METOPROLOL TARTRATE 100 MG TABLET PO SCH ×2 (08:56→20:31)
[2021-09-22] MEDS: WARFARIN 7.5 MG TABLET PO SCH (17:02)
[2021-09-22] MEDS: oxyCODONE/ACETAMINOPHEN 5-325 MG TABLET PO PRN (20:31)
[2021-09-22] MEDS: ROSUVASTATIN 20 MG TABLET PO SCH (20:31)
[2021-09-23] MEDS: INSULIN LISPRO 100 UNIT/ML SUBCUT SCH ×6 (01:00→21:00)
[2021-09-23] MEDS: PIPERACILLIN/TAZOBACTAM 3,375 MG in SODIUM CHLORIDE 0.9% 100 ML IV SCH ×3 (03:25→21:00)
[2021-09-23 05:33] LABS: Basophils % 0.1 % (0.0-0.8); Eosinophils % 0.3 % (0.00-10.9); Hematocrit 39.3 VOL% (42.0-52.0); Immature Granulocytes % 0.8 %; Immature Granulocytes Absolute 0.08 #; Lymphocytes # 1.7 10*3/uL (1.4-4.0); Lymphocytes % 15.7 % (21.2-54.2); Mean Corpuscular HGB Conc 30.5 GM/DL (32-36); Mean Platelet Volume 11.2 FL (9.6-12.0); Monocytes % 7.5 % (1.7-12.7); Neutrophils % 75.6 % (38.7-73.9); Platelet Count 477 T/CUMM (130-400); Red Blood Count 4.27 MC/CUMM (3.8-5.5); Red Cell Distribution Width 16.4 % (9.3-17.3); White Blood Count 10.5 T/CUMM (4-12)
[2021-09-23 05:43] LABS: INR 1.9; PT Patient Result 20.9 SECS (10.5-12.0)
[2021-09-23 05:51] LABS: Calcium 9.3 MG/DL (8.5-10.1); Osmolality,Calculated 276.1 MOS/KG (273-304); Potassium 3.6 MMOL/L (3.5-5.1)
[2021-09-23 05:57] LABS: Ferritin 1501.4 ng/mL (26-388)
[2021-09-23 06:01] LABS: Alanine Aminotransferase 192 U/L (16-61); Albumin 2.9 G/DL (3.4-5.0); Alkaline Phosphatase 227 U/L (45-117); Aspartate Amino Transferase 119 U/L (0-37); Bilirubin,Indirect 2.2 MG/DL (0.0-1.0); Blood Urea Nitrogen 32 MG/DL (7-18); Calcium 8.8 MG/DL (8.5-10.1); Carbon Dioxide 25 MMOL/L (21-32); Estimated Glom Filtration Rate 119 ML/MIN; Glucose 103 MG/DL (74-106); Osmolality,Calculated 287.3 MOS/KG (273-304); Sodium 141 MMOL/L (136-145); Total Protein 7.4 G/DL (6.4-8.2)
[2021-09-23 06:07] LABS: Anisocytosis 1+; Platelet Estimate Normal
[2021-09-23 06:08] LABS: Macrocytosis Slight
[2021-09-23] MEDS: ZINC GLUCONATE 50 MG TABLET PO SCH (08:51)
[2021-09-23] MEDS: BARICITINIB 2 MG TABLET PO SCH (08:51)
[2021-09-23] MEDS: CHOLECALCIFEROL 1,000 UNIT TABLET PO SCH (08:51)
[2021-09-23] MEDS: DEXAMETHASONE 4 MG TABLET PO SCH (08:51)
[2021-09-23] MEDS: GABAPENTIN 300 MG CAPSULE PO SCH ×2 (08:51→21:00)
[2021-09-23] MEDS: DOCUSATE SODIUM 100 MG CAPSULE PO SCH ×2 (08:51→21:00)
[2021-09-23] MEDS: FUROSEMIDE 40 MG TABLET PO SCH ×2 (08:51→16:51)
[2021-09-23] MEDS: CHLORHEXIDINE 0.12% ORAL RINSE 60 ML BOTTLE SWISH/SPIT SCH ×2 (08:51→21:00)
[2021-09-23] MEDS: ASCORBIC ACID 500 MG TABLET PO SCH ×2 (08:51→21:00)
[2021-09-23] MEDS: PANTOPRAZOLE 40 MG TABLET PO SCH (08:51)
[2021-09-23] MEDS: ASPIRIN EC 81 MG TABLET PO SCH (08:52)
[2021-09-23] MEDS: METOPROLOL TARTRATE 100 MG TABLET PO SCH ×2 (08:52→21:00)
[2021-09-23] MEDS: INSULIN GLARGINE 100 UNIT/ML SUBCUT SCH (08:52)
[2021-09-23] MEDS: FERROUS SULFATE 325 MG TABLET PO SCH (08:52)
[2021-09-23] MEDS: LOSARTAN 25 MG TABLET PO SCH (08:52)
[2021-09-23] MEDS: oxyCODONE/ACETAMINOPHEN 5-325 MG TABLET PO PRN (08:55)
[2021-09-23] MEDS: WARFARIN 7.5 MG TABLET PO SCH (17:13)
[2021-09-23] MEDS: ROSUVASTATIN 20 MG TABLET PO SCH (21:00)
[2021-09-24] MEDS: INSULIN LISPRO 100 UNIT/ML SUBCUT SCH ×6 (00:50→21:13)
[2021-09-24] MEDS: PIPERACILLIN/TAZOBACTAM 3,375 MG in SODIUM CHLORIDE 0.9% 100 ML IV SCH ×3 (03:15→20:33)
[2021-09-24 05:36] LABS: Basophils % 0.1 % (0.0-0.8); Eosinophils % 0.1 % (0.00-10.9); Hematocrit 37.8 VOL% (42.0-52.0); Hemoglobin 11.6 GM/DL (14.0-18.0); Immature Granulocytes % 0.6 %; Immature Granulocytes Absolute 0.07 #; Lymphocytes # 1.2 10*3/uL (1.4-4.0); Lymphocytes % 10.7 % (21.2-54.2); Mean Corpuscular HGB Conc 30.7 GM/DL (32-36); Mean Corpuscular Volume 91.5 FL (87-102); Mean Platelet Volume 11.2 FL (9.6-12.0); Monocytes % 5.9 % (1.7-12.7); Neutrophils % 82.6 % (38.7-73.9); Platelet Count 533 T/CUMM (130-400); Red Blood Count 4.13 MC/CUMM (3.8-5.5); Red Cell Distribution Width 16.2 % (9.3-17.3); White Blood Count 11.4 T/CUMM (4-12)
[2021-09-24 05:44] LABS: Calcium 8.9 MG/DL (8.5-10.1); Osmolality,Calculated 282.8 MOS/KG (273-304); Potassium 3.9 MMOL/L (3.5-5.1)
[2021-09-24 05:48] LABS: Albumin 2.6 G/DL (3.4-5.0); Bilirubin,Direct 0.22 MG/DL (0.0-0.20); Bilirubin,Indirect 0.5 MG/DL (0.0-1.0); Bilirubin,Total 0.7 MG/DL (0.20-1.00); Total Protein 7.5 G/DL (6.4-8.2)
[2021-09-24 05:50] LABS: INR 2.2
[2021-09-24 05:59] LABS: PT Patient Result 23.5 SECS (10.5-12.0)
[2021-09-24 06:43] LABS: Hypochromia 1+; Microcytosis Slight
[2021-09-24 06:44] LABS: Platelet Estimate Normal; Polychromasia Slight
[2021-09-24] MEDS: DEXAMETHASONE 4 MG TABLET PO SCH (08:21)
[2021-09-24] MEDS: GABAPENTIN 300 MG CAPSULE PO SCH ×2 (08:21→20:33)
[2021-09-24] MEDS: BARICITINIB 2 MG TABLET PO SCH (08:22)
[2021-09-24] MEDS: CHOLECALCIFEROL 1,000 UNIT TABLET PO SCH (08:22)
[2021-09-24] MEDS: DOCUSATE SODIUM 100 MG CAPSULE PO SCH ×2 (08:22→20:33)
[2021-09-24] MEDS: FUROSEMIDE 40 MG TABLET PO SCH ×2 (08:22→15:26)
[2021-09-24] MEDS: ZINC GLUCONATE 50 MG TABLET PO SCH (08:22)
[2021-09-24] MEDS: METOPROLOL TARTRATE 100 MG TABLET PO SCH ×2 (08:22→20:33)
[2021-09-24] MEDS: LOSARTAN 25 MG TABLET PO SCH (08:22)
[2021-09-24] MEDS: ASCORBIC ACID 500 MG TABLET PO SCH ×2 (08:22→20:34)
[2021-09-24] MEDS: FERROUS SULFATE 325 MG TABLET PO SCH (08:22)
[2021-09-24] MEDS: PANTOPRAZOLE 40 MG TABLET PO SCH (08:22)
[2021-09-24] MEDS: ASPIRIN EC 81 MG TABLET PO SCH (08:22)
[2021-09-24] MEDS: INSULIN GLARGINE 100 UNIT/ML SUBCUT SCH (08:25)
[2021-09-24] MEDS: CHLORHEXIDINE 0.12% ORAL RINSE 60 ML BOTTLE SWISH/SPIT SCH ×2 (08:25→20:34)
[2021-09-24] MEDS: oxyCODONE/ACETAMINOPHEN 5-325 MG TABLET PO PRN ×2 (15:25→20:34)
[2021-09-24] MEDS: CLORAZEPATE 7.5 MG TABLET PO PRN (15:25)
[2021-09-24] MEDS: WARFARIN 7.5 MG TABLET PO SCH (19:13)
[2021-09-24] MEDS: ROSUVASTATIN 20 MG TABLET PO SCH (20:33)
[2021-09-24] MEDS: ZALEPLON 5 MG CAPSULE PO PRN (20:34)
[2021-09-25] MEDS: INSULIN LISPRO 100 UNIT/ML SUBCUT SCH ×5 (00:49→21:11)
[2021-09-25] MEDS: PIPERACILLIN/TAZOBACTAM 3,375 MG in SODIUM CHLORIDE 0.9% 100 ML IV SCH ×3 (04:09→21:11)
[2021-09-25 04:50] LABS: Basophils % 0.1 % (0.0-0.8); Eosinophils % 0.3 % (0.00-10.9); Hematocrit 39.3 VOL% (42.0-52.0); Hemoglobin 12.2 GM/DL (14.0-18.0); Immature Granulocytes % 0.9 %; Lymphocytes # 1.2 10*3/uL (1.4-4.0); Lymphocytes % 10.5 % (21.2-54.2); Mean Corpuscular Volume 91.8 FL (87-102); Mean Platelet Volume 12.2 FL (9.6-12.0); Monocytes % 5.5 % (1.7-12.7); Neutrophils % 82.7 % (38.7-73.9); Platelet Count 525 T/CUMM (130-400); Red Blood Count 4.28 MC/CUMM (3.8-5.5); White Blood Count 11.6 T/CUMM (4-12)
[2021-09-25 04:58] LABS: Osmolality,Calculated 282.7 MOS/KG (273-304); Potassium 3.7 MMOL/L (3.5-5.1)
[2021-09-25 06:33] LABS: PT Patient Result 21.8 SECS (10.5-12.0)
[2021-09-25] MEDS: GABAPENTIN 300 MG CAPSULE PO SCH ×2 (08:31→20:44)
[2021-09-25] MEDS: LOSARTAN 25 MG TABLET PO SCH (08:31)
[2021-09-25] MEDS: BARICITINIB 2 MG TABLET PO SCH (08:31)
[2021-09-25] MEDS: METOPROLOL TARTRATE 100 MG TABLET PO SCH ×2 (08:31→20:44)
[2021-09-25] MEDS: FERROUS SULFATE 325 MG TABLET PO SCH (08:31)
[2021-09-25] MEDS: INSULIN GLARGINE 100 UNIT/ML SUBCUT SCH (08:31)
[2021-09-25] MEDS: POTASSIUM CHLORIDE 10 MEQ TABLET PO SCH (08:31)
[2021-09-25] MEDS: DEXAMETHASONE 4 MG TABLET PO SCH (08:31)
[2021-09-25] MEDS: DOCUSATE SODIUM 100 MG CAPSULE PO SCH ×2 (08:31→21:12)
[2021-09-25] MEDS: FUROSEMIDE 40 MG TABLET PO SCH ×2 (08:31→17:11)
[2021-09-25] MEDS: ASPIRIN EC 81 MG TABLET PO SCH (08:31)
[2021-09-25] MEDS: CHLORHEXIDINE 0.12% ORAL RINSE 60 ML BOTTLE SWISH/SPIT SCH ×2 (08:32→21:11)
[2021-09-25] MEDS: ZINC GLUCONATE 50 MG TABLET PO SCH (08:32)
[2021-09-25] MEDS: CHOLECALCIFEROL 1,000 UNIT TABLET PO SCH (08:32)
[2021-09-25] MEDS: PANTOPRAZOLE 40 MG TABLET PO SCH (08:32)
[2021-09-25] MEDS: ASCORBIC ACID 500 MG TABLET PO SCH ×2 (08:32→20:44)
[2021-09-25] MEDS: oxyCODONE/ACETAMINOPHEN 5-325 MG TABLET PO PRN ×2 (08:38→18:32)
[2021-09-25] MEDS: WARFARIN 7.5 MG TABLET PO SCH (17:11)
[2021-09-25] MEDS: CLORAZEPATE 7.5 MG TABLET PO PRN (20:44)
[2021-09-25] MEDS: ROSUVASTATIN 20 MG TABLET PO SCH (20:45)
[2021-09-25] MEDS: guaiFENesin/DM ER 600-30 MG TABLET PO PRN (20:45)
[2021-09-25 21:26] VITALS: BP 108/78
[2021-09-26] MEDS: PIPERACILLIN/TAZOBACTAM 3,375 MG in SODIUM CHLORIDE 0.9% 100 ML IV SCH ×2 (03:00→11:09)
[2021-09-26 06:31] LABS: Basophils % 0.1 % (0.0-0.8); Eosinophils # 0.1 10*3/uL (0.0-0.87); Eosinophils % 0.5 % (0.00-10.9); Hemoglobin 10.8 GM/DL (14.0-18.0); Immature Granulocytes % 0.7 %; Immature Granulocytes Absolute 0.07 #; Lymphocytes % 10.8 % (21.2-54.2); Mean Corpuscular HGB Conc 30.9 GM/DL (32-36); Mean Corpuscular Volume 91.1 FL (87-102); Mean Platelet Volume 11.2 FL (9.6-12.0); Monocytes % 5.3 % (1.7-12.7); Neutrophils % 82.6 % (38.7-73.9); Platelet Count 550 T/CUMM (130-400); Red Blood Count 3.84 MC/CUMM (3.8-5.5); White Blood Count 9.4 T/CUMM (4-12)
[2021-09-26 06:45] LABS: INR 2.3
[2021-09-26 06:50] LABS: Calcium 8.7 MG/DL (8.5-10.1); Osmolality,Calculated 280.7 MOS/KG (273-304); Potassium 3.8 MMOL/L (3.5-5.1)
[2021-09-26 07:06] LABS: Albumin 2.5 G/DL (3.4-5.0); Bilirubin,Total 1.4 MG/DL (0.20-1.00); Calcium 8.4 MG/DL (8.5-10.1); Osmolality,Calculated 286.3 MOS/KG (273-304); Potassium 3.9 MMOL/L (3.5-5.1); Total Protein 7.1 G/DL (6.4-8.2)
[2021-09-26] MEDS: INSULIN LISPRO 100 UNIT/ML SUBCUT SCH ×2 (08:35→10:59)
[2021-09-26] MEDS: POTASSIUM CHLORIDE 10 MEQ TABLET PO SCH (08:59)
[2021-09-26] MEDS: INSULIN GLARGINE 100 UNIT/ML SUBCUT SCH (08:59)
[2021-09-26] MEDS: DEXAMETHASONE 4 MG TABLET PO SCH (09:00)
[2021-09-26] MEDS: ZINC GLUCONATE 50 MG TABLET PO SCH (09:00)
[2021-09-26] MEDS: CHOLECALCIFEROL 1,000 UNIT TABLET PO SCH (09:00)
[2021-09-26] MEDS: GABAPENTIN 300 MG CAPSULE PO SCH (09:00)
[2021-09-26] MEDS: ASCORBIC ACID 500 MG TABLET PO SCH (09:00)
[2021-09-26] MEDS: DOCUSATE SODIUM 100 MG CAPSULE PO SCH (09:00)
[2021-09-26] MEDS: FUROSEMIDE 40 MG TABLET PO SCH (09:00)
[2021-09-26] MEDS: PANTOPRAZOLE 40 MG TABLET PO SCH (09:01)
[2021-09-26] MEDS: CHLORHEXIDINE 0.12% ORAL RINSE 60 ML BOTTLE SWISH/SPIT SCH (09:01)
[2021-09-26] MEDS: ASPIRIN EC 81 MG TABLET PO SCH (09:01)
[2021-09-26] MEDS: LOSARTAN 25 MG TABLET PO SCH (09:01)
[2021-09-26] MEDS: FERROUS SULFATE 325 MG TABLET PO SCH (09:01)
[2021-09-26] MEDS: METOPROLOL TARTRATE 100 MG TABLET PO SCH (09:01)
[2021-09-26] MEDS: oxyCODONE/ACETAMINOPHEN 5-325 MG TABLET PO PRN (10:22)
== END 2021-09-26 11:41 | disposition home health service (06) | DRG 907 ==
LOC: EDUNIT# → EDBD → N.ED 23:05 → N.EDINP 09-14 00:08 → N.ICU 09-14 00:52 → N.CVR 09-14 01:15 → N.ICU 09-14 19:19 → N.CC 09-18 12:01
PROVIDERS: ADMIT Internal Medicine Cardiovascular Disease